=== PATIENT | female | born 1950 | race Two or more races ===

== ENCOUNTER 2021-04-15 10:17 | Outpatient (REF) | payer MEDICARE, MEDICAID, SELFPAY ==
[2021-04-15 11:52] LABS: Creatinine Urine 67.51 mg/dL; Microalbum/Creatinine Ratio Ur 663.6 ug/mg cr
[2021-04-15 11:55] LABS: Alanine Aminotransferase 11 U/L (0-31); Albumin Level 4.4 g/dL (3.5-5.0); Alkaline Phosphatase 87 U/L (39-117); Anion Gap 14 (12-20); Aspartate Amino Transferase 14 U/L (5-31); Bilirubin Total 0.4 mg/dL (0.0-1.0); Blood Urea Nitrogen 23 mg/dL (9-16); Calcium 10.1 mg/dL (8.4-10.2); Carbon Dioxide 27 mmol/L (22-29); Chloride 102 mmol/L (96-108); Cholesterol 227 mg/dL; Estimated Glomerular Filt Rate 56; Glucose Fasting 181 mg/dL (60-99); HDL Cholesterol 59 mg/dL; LDL Cholesterol Calculated 150 mg/dl; Potassium 4.9 mmol/L (3.3-5.1); Sodium 138 mmol/L (135-145); Total Protein 8.2 g/dL (6.5-8.0); Triglycerides 92 mg/dL
[2021-04-19 15:01] LABS: Vitamin D 25-OH, D2 <4 ng/mL; Vitamin D 25-OH, D3 22 ng/mL; Vitamin D 25-OH, Total 22 ng/mL (30-100)
== END 2021-04-15 10:18 | disposition home or self-care (01) ==
LOC: HO.LAB 10:17
PROVIDERS: PCP Internal Medicine; Visit Provider Internal Medicine
DX: E78.5 Hyperlipidemia, unspecified (principal); E55.9 Vitamin D deficiency, unspecified; Z79.4 Long term (current) use of insulin
CPT/HCPCS: 36415; 80053; 80061; 82043; 82306

== ENCOUNTER 2021-11-22 12:00 | Emergency (ER) | payer MEDICARE, MEDICAID, SELFPAY ==
[2021-11-22 16:07] VITALS: BP 184/106; PULSE 108; RESP 16; TEMP 36.5; O2SAT 98; BMI 24.7
[2021-11-22 16:14] LABS: Glucose, Whole Blood 115 mg/dL (60-115)
--- NOTE | 2021-11-22 16:28 | ED.EYEPROB ---
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 Patient tells me she had cataract surgery 1 month ago. Couple a days after having surgery she noticed the itching and swelling and redness. She saw a gliding pilot instructor on November 07 and was prescribed prednisone for 5 days and Benadryl. She is already using Toradol eyedrops and briminodine which she started immediately postop. No drainage from the eye, no eye pain, no vision changes, no pain with eye movement, no fevers or chills. Related Data Previous Rx's Medication Instructions Recorded blood sugar diagnostic (FreeStyle #60 ea 03/02/20 Test) insulin syringe-needle U-100 0.5 #30 ea 03/02/20 mL 31 gauge x 5/16 lancets 28 gauge (FreeStyle #60 ea 11/05/20 Lancets) dulaglutide 0.75 mg/0.5 mL 0.75 mg (0.5 mL) subcut QWEEK 90 01/04/21 subcutaneous pen injector days #6.5 mL (Trulicity) gabapentin 100 mg capsule 100 mg PO BEDTIME 90 days #90 caps 07/13/21 aspirin 81 mg tablet,delayed 81 mg PO DAILY 90 days #90 tabs 07/21/21 release (Adult Low Dose Aspirin) atorvastatin 20 mg tablet 20 mg PO BEDTIME 90 days #90 tabs 07/21/21 metformin 500 mg tablet 500 mg PO BID 90 days #180 tabs 07/21/21 trazodone 50 mg tablet 50 mg PO BEDTIME PRN sleep 90 days 07/21/21 #90 tabs lisinopril 10 mg tablet 10 mg PO DAILY #90 tabs 09/21/21 sennosides 8.6 mg capsule (senna) 8.6 mg PO BEDTIME PRN constipation 09/21/21 90 days #90 caps clindamycin HCl 150 mg capsule 150 mg PO TID #21 caps 11/22/21 diphenhydramine HCl 25 mg capsule 25 mg PO TID PRN itching #30 caps 11/22/21 (Benadryl) insulin glargine 100 unit/mL 15 unit (0.15 mL) subcut QPM 90 11/22/21 subcutaneous solution days #13.5 mL prednisone 20 mg tablet 40 mg PO DAILY #10 tabs 11/22/21 Allergies Allergy/AdvReac Type Severity Reaction Status Date / Time seafood Allergy Severe Swelling Verified 09/21/21 09:56 Review of Systems Review of Systems: Yes all other systems are reviewed and are negative Constitutional: Constitutional: Reports no additional constitutional complaints, Denies body ache(s), Denies chills, Denies fever(s), Denies headache(s) and Denies weakness Eyes: Eyes: Reports no additional eye complaints, Denies blurry vision, Denies change in vision, Denies eye discharge, Reports irritation, Reports itchy eyes, Denies other visual disturbances and Denies photophobia ENT: Reports system reviewed and no additional complaints, except as documented, Denies dizziness, Denies headache(s), Denies nasal congestion, Denies nasal discharge and Denies neck pain Cardiovascular: Cardiovascular: Reports no additional cardiovascular complaints, Denies chest pain, Denies leg edema and Denies dyspnea Respiratory: Respiratory: Reports no additional respiratory complaints, Denies cough and Denies dyspnea Gastrointestinal: Gastrointestinal: Reports no additional gastrointestinal complaints, Denies abdominal pain, Denies diarrhea, Denies nausea and Denies vomiting Genitourinary: Genitourinary: Reports no additional female genitourinary complaints and Denies urinary incontinence Musculoskeletal: Musculoskeletal: Reports no additional musculoskeletal complaints, Denies back pain, Denies arthralgias, Denies joint swelling, Denies neck pain, Denies numbness and Denies tingling Integumentary/Breasts: Skin/Breast: Reports system reviewed and no additional complaints, except as docu and Denies rash Neurologic: Reports system reviewed and no additional complaints, except as documented, Denies Abnormal speech present, Denies dizziness, Denies headache(s), Denies numbness, Denies tingling and Denies weakness Allergic/Immunologic: Allergic/Immunologic: Reports itchy eyes PMFSH Past Medical History Attestation statement: The following information was validated with the patient. Source: old records reviewed and nursing notes reviewed Medical History Constipation by delayed colonic transit Diabetes mellitus type 2, insulin dependent Diabetic neuropathy Essential hypertension Insomnia Microalbuminuria Pure hypercholesterolemia Surgical History History of tubal ligation S/P DAVID-BSO (total abdominal hysterectomy and bilateral salpingo-oophorectomy) Family History Family History Father Medical history unknown Mother Diabetes Hypertension Brother Cancer Son No problems noted. Son No problems noted. Social History Social History Housing: Apartment Alcohol intake: never Patient Tobacco Use Status: Never used Tobacco e-Cigarette/Vaping Use: Never Used Second Hand Smoke Exposure: No Advance Directives: No Advance Directives Information Provided: Yes service: No Current occupational status: disabled Cognitive needs: No Hearing needs: No Vision needs: Yes (glasses) Physical Exam Vital Signs: Vital Signs: Last Vital Signs Temp 97.7 F 11/22/21 16:07 Pulse 108 H 11/22/21 16:07 Resp 16 11/22/21 16:07 BP 184/106 H 11/22/21 16:07 Pulse Ox 98 11/22/21 16:07 O2 Del Method 11/22/21 16:07 BMI result Body Mass Index 24.7 Const: General: cooperative, healthy appearing, comfortable and no acute distress Orientation/consciousness: patient oriented x3 Limitations: no limitations HEENT: Other: bilateral eye pressure 20 Head: Yes normal to inspection Ears: hearing grossly normal bilaterally General nose exam: Normal external nose present Face and sinus: Yes normal facial exam Mouth: Normal oral and palatal mucosa present Throat: Yes posterior oropharynx normal Eyes: Other: There is redness of the upper and lower eyelid with swelling General: appearance normal, both eyes and all related structures Visual Wilhelm: normal visual wilhelm by confrontation Alignment and Position: alignment normal Conjunctivae: conjunctivae normal Sclerae: scleral abnormal (Bilateral mild scleral swelling) Corneas: corneas normal and fluorescein used (No abrasion or foreign body) Pupils: Equal, round and reactive pupils present EOM: EOMs intact bilaterally Direct Ophthalmoscopy: No photophobia Neck: Neck: Yes normal visual inspection, Yes full ROM and Yes no lymphadenopathy Chest: Chest palpation & inspection: normal inspection of the chest Resp: Effort & Inspection: normal respiratory effort Auscultation: clear to auscultation bilaterally Cardio: Rate: regular rate Rhythm: regular rhythm Peripheral pulses: Peripheral pulses 2+ throughout GI: Inspection: Yes normal to inspection Palpation (GI): Soft to palpation and nontender Auscultation: normal bowel sounds Back/Spine/Pelvis: Thoracic/Lumbar Spine: thoracic and lumbar spine normal to inspection Skin: General skin exam: no rashes or lesions noted Neuro: General: patient oriented x3, no focal motor deficits and normal sensation to monofilament Cranial nerves: Yes Equal, round and reactive pupils present Cognition (Neuro): normal cognition Speech: No Abnormal speech present Gait exam (Neuro): Normal gait present Motor exam (neuro): 5/5 motor strength present throughout Extrem: General: Yes normal to inspection Course Course Course Narrative: Pressures are normal. Fluorescein exam shows no abrasion or foreign body. There is conjunctival injection and scleral edema on exam. Erythema/swelling to upper and lower eyelids on exam. EOM is intact with no pain or difficulty. Likely allergic conjunctivitis but consider superimposed periorbital cellulitis. Low concern for orbital cellulitis with no reports of change in vision and EOM that is intact. Will start oral antibiotics and repeat course of prednisone. Recommend p.r.n. Benadryl Reviewed worrisome signs and symptoms of when to return to the emergency department. Comfortable discharge home. MDM - Eye Problem MDM Narrative Medical decision making narrative: 70-year-old female here with reports of bilateral eyelid redness, swelling, itching of the eyes for 3 weeks. Had cataract surgery 1 week prior to symptoms. Has followed up with Ophthalmology and was started on prednisone and Benadryl. Also using Toradol and brimidone gtt. Exam patient has bilateral upper and lower eyelid redness and swelling with conjunctival injection and scleral edema. She is itching her eyes quite incessantly in the room. Will check eye exam and pressures Medical Records Attestation: I reviewed the patient's medical records. Lab Data Attestation: I reviewed the patient's lab results. Labs: Lab Results 11/22/21 Range/Units 16:10 POC Glucose 115 (60-115) mg/dL Discharge Plan Discharge Clinical Impression: Cellulitis of periorbital region of both eyes, Acute allergic conjunctivitis of both eyes Patient Disposition: Home, Self-Care Instructions: Cellulitis (ED), Periorbital Cellulitis in Adults (ED), Conjunctivitis (ED) Additional Instructions: Continue eye drops Continue benadryl Avoid itching your eyes as this will make it worse Follow up with your eye doctor on december 20 Your blood pressure is elevated today. Please follow-up with primary care doctor this week to have a rechecked Prescriptions: New prednisone 20 mg tablet 40 mg PO DAILY Qty: 10 0RF clindamycin HCl 150 mg capsule 150 mg PO TID Qty: 21 0RF diphenhydramine HCl [Benadryl] 25 mg capsule 25 mg PO TID PRN (Reason: itching) Qty: 30 0RF No Action (DME) lancets [FreeStyle Lancets] 28 gauge misc See Rx Instructions .ROUTE .MEDSUPPLY Qty: 60 11RF Rx Instructions: Use 1 lancet twice a day Trulicity 0.75 mg/0.5 mL pen injector 0.75 mg subcut QWEEK 90 Days Qty: 6.5 3RF gabapentin 100 mg capsule 100 mg PO BEDTIME 90 Days Qty: 90 1RF trazodone 50 mg tablet 50 mg PO BEDTIME PRN (Reason: sleep) 90 Days Qty: 90 3RF metformin 500 mg tablet 500 mg PO BID 90 Days Qty: 180 3RF atorvastatin 20 mg tablet 20 mg PO BEDTIME 90 Days Qty: 90 3RF aspirin [Adult Low Dose Aspirin] 81 mg tablet,delayed release (DR/EC) 81 mg PO DAILY 90 Days Qty: 90 3RF insulin glargine 100 unit/mL solution 15 unit subcut QPM 90 Days Qty: 13.5 1RF (DME) insulin syringe-needle U-100 0.5 mL 31 gauge x 5/16 syringe See Rx Instructions .ROUTE .MEDSUPPLY Qty: 30 11RF Rx Instructions: As directed (DME) FreeStyle Test Strip See Rx Instructions .ROUTE .MEDSUPPLY Qty: 60 11RF Rx Instructions: 1 test strip twice a day senna 8.6 mg capsule 8.6 mg PO BEDTIME PRN (Reason: constipation) 90 Days Qty: 90 1RF lisinopril 10 mg tablet 10 mg PO DAILY Qty: 90 0RF Referrals: Angelica Beaver MD [Primary Care Provider] - (as needed) Interventions: ED Discharge Assessment Last Done: 11/22/21 17:36 Discharge Date/Time: 11/22/21 17:37
[2021-11-22] MEDS: Fluorescein Sodium STRIP 1 STRIP EYE-BOTH (16:51)
[2021-11-22] MEDS: Tetracaine HCl/PF 0.5% Oph Sol 4 ML DROPS 1 DROP EYE-BOTH (16:51)
== END 2021-11-22 17:37 | disposition home or self-care (01) ==
PROVIDERS: Emergency Provider Emergency Medicine; PCP Internal Medicine
DX: L03.213 Periorbital cellulitis (principal); H10.13 Acute atopic conjunctivitis, bilateral; Z79.899 Other long term (current) drug therapy
CPT/HCPCS: 82947; 99282; 99283

== ENCOUNTER 2022-02-09 17:59 | Emergency (ER) | payer MEDICARE, MEDICAID, SELFPAY ==
[2022-02-09 20:09] VITALS: BP 187/76; PULSE 104; RESP 18; TEMP 36.3; O2SAT 100; BMI 24.0
--- NOTE | 2022-02-09 20:16 | ED_ITS ---
HPI - General Adult General Chief complaint: General Medical Stated complaint: left sided pain and back..shingles Time Seen by Provider: 02/09/22 20:16 Source: patient Mode of arrival: ambulatory Limitations: language barrier (Citizen Of [place]-speaking) History of Present Illness HPI narrative: 71-year-old female with a past medical history of hypertension, hyperlipidemia, diabetes presenting to the ED with complaints of a rash to left side of her abdomen that is spreading to the left side of the back that started approximately 6 days ago. She reports it is very painful and very itchy. She reports she believes this is shingles. She denies any other symptoms complaints or concerns at this time. complaint: Shingles rash Onset (ago): day(s) (6 days) Location: back and abdomen Severity: moderate Quality: burning (Pruritic sensation) and constant Pain Consistency: constant Relieving factors: none Exacerbating factors: none Associated symptoms: rash Treatments prior to arrival: none Related Data Home Medications Medication Instructions Recorded Confirmed ketorolac 0.5 % eye drops drp ophthalmic (eye) ONCE 01/03/22 01/03/22 timolol maleate 0.5 % eye drops drp ophthalmic (eye) ONCE 01/03/22 01/03/22 triamcinolone acetonide 0.025 % topical 01/03/22 01/03/22 topical ointment Previous Rx's Medication Instructions Recorded blood sugar diagnostic (FreeStyle #60 ea 03/02/20 Test strips) insulin syringe-needle U-100 0.5 #30 ea 03/02/20 mL 31 gauge x 5/16 lancets 28 gauge (FreeStyle #60 ea 11/05/20 Lancets) aspirin 81 mg tablet,delayed 81 mg PO DAILY 90 days #90 tabs 07/21/21 release (Adult Low Dose Aspirin) atorvastatin 20 mg tablet 20 mg PO BEDTIME 90 days #90 tabs 07/21/21 metformin 500 mg tablet 500 mg PO BID 90 days #180 tabs 07/21/21 diphenhydramine HCl 25 mg capsule 25 mg PO TID PRN itching #30 caps 11/22/21 (Benadryl) insulin glargine 100 unit/mL 15 unit (0.15 mL) subcut QPM 90 11/22/21 subcutaneous solution days #13.5 mL dulaglutide 0.75 mg/0.5 mL 0.75 mg (0.5 mL) subcut QWEEK 90 12/31/21 subcutaneous pen injector days #6.5 mL (Trulicity) tramadol 50 mg tablet 50 mg PO DAILY 30 days #30 tabs 01/03/22 lisinopril 20 mg tablet 20 mg PO DAILY 90 days #90 tabs 01/05/22 sennosides 8.6 mg capsule (senna) 8.6 mg PO BEDTIME PRN constipation 01/12/22 90 days #90 caps trazodone 50 mg tablet 50 mg PO BEDTIME PRN sleep 90 days 01/12/22 #90 tabs gabapentin 100 mg capsule 100 mg PO BEDTIME 90 days #90 caps 01/22/22 oxycodone 5 mg tablet 5 mg PO Q6H PRN pain #14 tabs 02/09/22 prednisone 20 mg tablet 40 mg PO DAILY rash 5 days #10 tabs 02/09/22 valacyclovir 1 gram tablet 1,000 mg PO TID Shingles rash 14 02/09/22 (Valtrex) days #42 tabs Allergies Allergy/AdvReac Type Severity Reaction Status Date / Time seafood Allergy Severe Swelling Verified 01/03/22 13:42 Review of Systems Review of Systems: Constitutional : No Fever, No Chills , no body aches, no recent illness Head/Face: No facial swelling, No facial redness ENT/Mouth : No oral/throat swelling, No Hoarseness, No Swallowing Difficulty Eyes: No Eye Pain, No Swelling, No Redness Cardiovascular : No Chest Pain, No SOB, No palpitations Respiratory : No Cough, No Sputum, No Wheezing, No Smoke Exposure, No Dyspnea Gastrointestinal : No Nausea, No Vomiting, No Diarrhea, No abdominal Pain Genitourinary : No Dysuria, No Urinary Frequency, No Hematuria Musculoskeletal : No joint pain, No Myalgias, No Joint Swelling Skin : No Skin Lesions, positive rash Neuro : No Weakness, No Numbness, No Headache, No dizziness, No tingling Psych : No Anxiety/Panic, No Depression Heme/Lymph: No Bruising, No Lymphadenopathy Endocrine : No Polyuria, No Polydipsia Denies changes in lotions or detergents. Denies new medications or any changes in medications. Denies drainage from rash. Denies any recent sick contacts or recent travel. Yes all other systems are reviewed and are negative PMFSH Past Medical History Attestation statement: The following information was validated with the patient. Source: old records reviewed and nursing notes reviewed Medical History Constipation by delayed colonic transit Diabetes mellitus type 2, insulin dependent Diabetic neuropathy Essential hypertension Insomnia Microalbuminuria Pure hypercholesterolemia Surgical History History of tubal ligation S/P DAVID-BSO (total abdominal hysterectomy and bilateral salpingo-oophorectomy) Family History Family History Father Medical history unknown Mother Diabetes Hypertension Brother Cancer Son No problems noted. Son No problems noted. Social History Social History Housing: Apartment Alcohol intake: never Patient Tobacco Use Status: Never used Tobacco e-Cigarette/Vaping Use: Never Used Second Hand Smoke Exposure: No service: No Current occupational status: disabled Cognitive needs: No Hearing needs: No Vision needs: Yes (glasses) Physical Exam ED Vital Signs: Vital Signs - 24 hr 02/09/22 20:09 Temperature 97.3 F Pulse Rate 104 H Respiratory Rate 18 Blood Pressure 187/76 H Pulse Oximetry 100 Oxygen Delivery Method Room Air BMI result Body Mass Index 24.0 vital signs have been reviewed as normal and appeared to be correct. Blood pressure 187/76. Heart rate normal. Respiration rate normal. Temperature no rmal. Oxygen saturation normal. Appearance: Alert. Oriented X3. No acute distress. Head: Normal external exam. Normocephalic. Atraumatic. Eyes: PERRLA. EOMI. Conjunctiva and sclera normal. Eyelids normal. ENT: Pharynx normal. Uvula midline. Moist mucous membranes. Normal voice. Neck: Normal inspection. Neck supple. FROM. No adenopathy. No meningeal signs. CVS: Normal heart rate and rhythm. Heart sound normal. Pulses normal throughout. No murmurs/rales/gallops. Respiratory: No respiratory distress. Painless inspiration. Abdomen: Soft and nontender only over shingles rash. Bowel sounds normal in all 4 quadrants. No distention noted. No organomegaly noted. No visible injury noted. Back: No CVA tenderness. Full range of motion noted. Nontender. No signs of trauma. Patient neuro intact bilaterally and distally on all 4 extremities. Patient's reflexes intact bilaterally and distally on all 4 extremities. No rashes/lesion/induration/fluctuance or signs of infection noted. Skin: Skin warm and dry. Normal skin color. Normal skin turgor. Painful dermatomal clustered vesicles on an erythematous base with some crusting ulcers consistent with shingles rash to the left abdomen/flank/mid back following the dermatome. No signs of infection noted. No purulent drainage noted. No streaking noted. No additional rashes/lesions/lacerations noted. Extremities: Extremities exhibit normal range of motion and nontender. Neuro: Oriented X 3. No motor deficit. No sensory deficit. Normal steady gait. No focal neuro deficits noted. CN's II-XII intact bilaterally? Vascular: + radial pulses/+ 2 distal pedal pulses/+2 dorsalis pedis b/l. Normal cap refill. No cyanosis noted to upper extremity nails and lower extremity toes nails. Course Course Course Narrative: Patient with shingles rash. No signs of infection. No imaging or labs indicated. Will DC home with symptomatic treatment instructions return if any new or worsening symptoms follow up with primary care provider. Patient understands agrees with this plan. Medical Decision Making Medical Records Medical records reviewed: Yes I reviewed the patient's medical records. Discharge Plan Discharge Clinical Impression: Shingles rash Patient Disposition: Home, Self-Care Instructions: Shingles (ED) Prescriptions: New valacyclovir [Valtrex] 1 gram tablet 1,000 mg PO TID 14 Days Qty: 42 0RF prednisone 20 mg tablet 40 mg PO DAILY 5 Days Qty: 10 0RF oxycodone 5 mg tablet 5 mg PO Q6H PRN (Reason: pain) Qty: 14 0RF Rx Instructions: Partial Fill upon patient request. No Action (DME) lancets [FreeStyle Lancets] 28 gauge misc See Rx Instructions .ROUTE .MEDSUPPLY Qty: 60 11RF Rx Instructions: Use 1 lancet twice a day metformin 500 mg tablet 500 mg PO BID 90 Days Qty: 180 3RF atorvastatin 20 mg tablet 20 mg PO BEDTIME 90 Days Qty: 90 3RF aspirin [Adult Low Dose Aspirin] 81 mg tablet,delayed release (DR/EC) 81 mg PO DAILY 90 Days Qty: 90 3RF insulin glargine 100 unit/mL solution 15 unit subcut QPM 90 Days Qty: 13.5 1RF Trulicity 0.75 mg/0.5 mL pen injector 0.75 mg subcut QWEEK 90 Days Qty: 6.5 3RF lisinopril 20 mg tablet 20 mg PO DAILY 90 Days Qty: 90 1RF trazodone 50 mg tablet 50 mg PO BEDTIME PRN (Reason: sleep) 90 Days Qty: 90 3RF senna 8.6 mg capsule 8.6 mg PO BEDTIME PRN (Reason: constipation) 90 Days Qty: 90 1RF gabapentin 100 mg capsule 100 mg PO BEDTIME 90 Days Qty: 90 1RF diphenhydramine HCl [Benadryl] 25 mg capsule 25 mg PO TID PRN (Reason: itching) Qty: 30 0RF (DME) insulin syringe-needle U-100 0.5 mL 31 gauge x 5/16 syringe See Rx Instructions .ROUTE .MEDSUPPLY Qty: 30 11RF Rx Instructions: As directed (DME) FreeStyle Test Strip See Rx Instructions .ROUTE .MEDSUPPLY Qty: 60 11RF Rx Instructions: 1 test strip twice a day timolol maleate 0.5 % drops ophthalmic (eye) ONCE ketorolac 0.5 % drops ophthalmic (eye) ONCE triamcinolone acetonide 0.025 % ointment topical tramadol 50 mg tablet 50 mg PO DAILY 30 Days Qty: 30 0RF Referrals: Angelica Beaver MD [Primary Care Provider] - 3 days Print Language: Citizen Of [place]
== END 2022-02-09 21:08 | disposition home or self-care (01) ==
PROVIDERS: Emergency Provider Internal Medicine; PCP Internal Medicine
DX: B02.9 Zoster without complications (principal); E11.9 Type 2 diabetes mellitus without complications; I10 Essential (primary) hypertension; E78.5 Hyperlipidemia, unspecified; E78.00 Pure hypercholesterolemia, unspecified; Z79.84 Long term (current) use of oral hypoglycemic drugs; Z79.02 Long term (current) use of antithrombotics/antiplatelets; Z79.899 Other long term (current) drug therapy
CPT/HCPCS: 99282; 99283

== ENCOUNTER 2022-08-27 17:29 | Emergency (ER) | payer MEDICARE, MEDICAID, SELFPAY ==
--- NOTE | ~2022-08-27 | XR_ITS ---
EXAMINATION: 1. Pelvis and left hip 2. Left femur. CLINICAL INFORMATION: Injury. Pain. COMPARISON: None. TECHNIQUE: 1. Pelvis and left hip. Frontal view of pelvis. Cone-down AP and oblique view of left hip. 2. Left femur. 2 views of the left femur. FINDINGS: 1. Pelvis. Left hip. There is a transverse subcapital fracture of the left femoral neck. Fracture is impacted and slightly angulated. No additional fracture of pelvis. 2. Left femur. No additional fracture of the mid or distal shaft of the left femur. Vascular calcifications in the soft tissues of the thigh. XR/XR femur LT 2V IMPRESSION: 1. Pelvis. Transverse subcapital fracture of the left femoral neck. 2. Left femur. No additional fracture of the mid or distal shaft of left femur.
--- NOTE | ~2022-08-27 | XR_ITS ---
EXAMINATION: 1. Pelvis and left hip 2. Left femur. CLINICAL INFORMATION: Injury. Pain. COMPARISON: None. TECHNIQUE: 1. Pelvis and left hip. Frontal view of pelvis. Cone-down AP and oblique view of left hip. 2. Left femur. 2 views of the left femur. FINDINGS: 1. Pelvis. Left hip. There is a transverse subcapital fracture of the left femoral neck. Fracture is impacted and slightly angulated. No additional fracture of pelvis. 2. Left femur. No additional fracture of the mid or distal shaft of the left femur. Vascular calcifications in the soft tissues of the thigh. XR/XR hip LT w PEL1V IMPRESSION: 1. Pelvis. Transverse subcapital fracture of the left femoral neck. 2. Left femur. No additional fracture of the mid or distal shaft of left femur.
[2022-08-27 17:56] VITALS: BP 143/85; PULSE 114; RESP 18; TEMP 36.6; O2SAT 98; BMI 30.2
[2022-08-27 19:50] VITALS: BP 172/79; PULSE 91; RESP 14; TEMP 37.5; O2SAT 97
--- NOTE | 2022-08-27 20:08 | ECG_ITS ---
Test Reason : L EFT HIP FRACTURE Blood Pressure : / mmHG Vent. Rate : 095 BPM Atrial Rate : 095 BPM P-R Int : 114 ms QRS Dur : 076 ms QT Int : 340 ms P-R-T Axes : 052 060 033 degrees QTc Int : 427 ms Normal sinus rhythm Normal ECG No previous ECGs available Referred By: Allie Decker Electronically Signed By:DAI FELIPE MD
[2022-08-27 20:36] LABS: MANUAL DIFF FLAG NO
[2022-08-27 20:37] LABS: Glucose, Whole Blood 211 mg/dL (60-115)
--- NOTE | 2022-08-27 20:39 | PC.NURSE ---
Pt aox4 resting at the bedside. Breaths are even regular and unlabored. Abd soft and nontender. Skim wpd. VSS. 20G IV line placed on the R AC. Pt tolerated well. Pt aware of plan of care. Will continue to monitor.
[2022-08-27 20:44] LABS: Basophils Percent Auto 0.3 % (0-2); Eosinophils Absolute Auto 0.1 X10*3/uL (0.0-0.4); Eosinophils Percent Auto 0.7 % (0-4); Hemoglobin 12.2 g/dl (12.0-16.0); Imm Gran Abs Auto 0.03 X10*3/uL (0.00-0.03); Imm Gran Pct Auto 0.3 % (0.0-0.4); Lymphocytes Absolute Auto 1.7 X10*3/uL (1.2-4.9); Mean Corpuscular HGB Conc 31.3 g/dl (31.0-35.0); Mean Corpuscular Hemoglobin 26.1 pg (27.0-33.0); Mean Corpuscular Volume 83.5 fL (80.0-98.0); Mean Platelet Volume 11.1 fL (9.4-12.3); Monocytes Absolute Auto 0.7 X10*3/uL (0.1-1.2); Monocytes Percent Auto 8.2 % (2-11); Neutrophils Absolute Auto 6.1 x10*3/uL (2.0-8.3); Neutrophils Percent Auto 70.5 % (45-73); Platelet Count 207 X10*3/uL (160-400); Red Blood Count 4.67 X10*6/uL (4.20-5.50); White Blood Count 8.7 X10*3/uL (4.8-10.8)
[2022-08-27 20:45] LABS: Appearance Urine Cloudy; Color Urine Yellow; Glucose Urine UA 500 mg/dL (Negative); Leukocyte Esterase Urine Trace (Negative); Nitrite Urine Negative (Negative); PH 6.5 (5.0-9.0); UMIC TRIGGER UACC YES; Urine Blood Trace (Negative); Urine Ketones Negative (Negative); Urine Protein Trace mg/dL (Neg-Trace)
[2022-08-27 20:49] LABS: Bacteria Urine 1+ (None Seen); Hyaline Casts Urine 0-2 /LPF (0-2); RBC Urine >20 /HPF (0-2); WBC Urine 0-5 /HPF (0-5)
[2022-08-27 20:52] LABS: Alanine Aminotransferase 11 U/L (0-31); Albumin Level 4.1 g/dL (3.5-5.0); Alkaline Phosphatase 79 U/L (39-117); Anion Gap 11 (12-20); Aspartate Amino Transferase 13 U/L (5-31); Bilirubin Direct 0.1 mg/dL (0.0-0.5); Bilirubin Total 0.3 mg/dL (0.0-1.0); Blood Urea Nitrogen 26 mg/dL (9-16); Calcium 9.1 mg/dL (8.4-10.2); Carbon Dioxide 25 mmol/L (22-29); Chloride 107 mmol/L (96-108); Creatinine Clr Calc Pharmacy 37.1; Estimated Glomerular Filt Rate 42; Glucose Random 212 mg/dL (60-115); Lipase 21 U/L (8-78); Potassium 4.4 mmol/L (3.3-5.1); Sodium 139 mmol/L (135-145); Total Protein 7.2 g/dL (6.5-8.0)
--- NOTE | 2022-08-27 20:56 | ED.FALL ---
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 Patient fell off a 1 ft high standing stool at her kitchen landing on her left side causing severe pain in the left hip patient is unable to walk after the fall, no head injury, no LOC, no neck pain, no chest pain, no SOB, no abdominal pain. Only complaining of left hip pain. Related Data Previous Rx's Medication Instructions Recorded gabapentin 100 mg capsule 100 mg PO BEDTIME 90 days #90 caps 05/11/22 insulin syringe-needle U-100 0.5 #30 ea 05/11/22 mL 31 gauge x 5/16 lancets 28 gauge (FreeStyle #60 ea 05/11/22 Lancets) blood sugar diagnostic (FreeStyle #60 ea 05/17/22 Test strips) aspirin 81 mg tablet,delayed 81 mg PO DAILY 90 days #90 tabs 05/18/22 release (Adult Low Dose Aspirin) atorvastatin 20 mg tablet 20 mg PO BEDTIME 90 days #90 tabs 05/18/22 lisinopril 20 mg tablet 20 mg PO DAILY 90 days #90 tabs 05/18/22 metformin 500 mg tablet 500 mg PO BID 90 days #180 tabs 05/18/22 sennosides 8.6 mg capsule (senna) 8.6 mg PO BEDTIME PRN constipation 05/18/22 90 days #90 caps trazodone 50 mg tablet 50 mg PO BEDTIME PRN sleep 90 days 05/18/22 #90 tabs insulin glargine 100 unit/mL 20 unit (0.2 mL) subcut QPM 90 07/25/22 subcutaneous solution days #18 mL nystatin 100,000 unit/gram topical 1 appl topical DAILY PRN rash 2 08/25/22 cream weeks #15 grams Allergies Allergy/AdvReac Type Severity Reaction Status Date / Time seafood Allergy Severe Swelling Verified 05/18/22 14:25 Review of Systems Review of Systems: All other systems are reviewed and are negative Constitutional: Reports as per HPI and Reports no additional constitutional complaints Eyes: Reports as per HPI and Reports no additional eye complaints Reports system reviewed and no additional complaints, except as documented Cardiovascular: Reports as per HPI and Reports no additional cardiovascular complaints Respiratory: Reports as per HPI and Reports no additional respiratory complaints Gastrointestinal: Reports as per HPI and Reports no additional gastrointestinal complaints Genitourinary: Reports no additional female genitourinary complaints Musculoskeletal: Reports no additional musculoskeletal complaints Skin/Breast: Reports system reviewed and no additional complaints, except as docu Psychiatric: Reports no additional psychiatric complaints Endocrine: Reports no additional endocrine complaints Hematologic/Lymphatic: Reports no additional hematologic/lymphatic complaints Allergic/Immunologic: Reports no additional allergic/immunologic complaints Reports system reviewed and no additional complaints, except as documented and Reports Abnormal speech present [facility] Past Medical History Medical History Constipation by delayed colonic transit Diabetes mellitus type 2, insulin dependent Diabetic neuropathy Essential hypertension Insomnia Microalbuminuria Pure hypercholesterolemia Surgical History History of tubal ligation S/P DAVID-BSO (total abdominal hysterectomy and bilateral salpingo-oophorectomy) Family History Family History Father Medical history unknown Mother Diabetes Hypertension Brother Cancer Son No problems noted. Son No problems noted. Social History Social History Housing: Apartment Alcohol intake: never Patient Tobacco Use Status: Never used Tobacco e-Cigarette/Vaping Use: Never Used Second Hand Smoke Exposure: No Advance Directives: No Advance Directives Information Provided: No service: No Current occupational status: disabled Cognitive needs: No Hearing needs: No Vision needs: Yes (glasses) Physical Exam Vital Signs: Vital Signs: Last Vital Signs Temp 99.5 F 08/27/22 19:50 Pulse 91 08/27/22 19:50 Resp 14 08/27/22 19:50 BP 172/79 H 08/27/22 19:50 Pulse Ox 97 08/27/22 19:50 O2 Del Method Room Air 08/27/22 19:50 BMI result Body Mass Index 30.2 Vital signs have been reviewed as appeared to be correct. Blood pressure normal. Heart rate normal. Respiration rate normal. Temperature normal. Oxygen saturation normal. Appearance: Alert. Oriented X3. No acute distress. Head: Normal external exam. Normocephalic. Atraumatic. No Lou signs noted. No raccoon eyes noted Eyes: PERRLA. EOMI. Conjunctiva and sclera normal. Eyelids normal. ENT: TM's Normal. Pharynx normal. Uvula midline. Moist mucous membranes. No trismus noted. No drooling noted. No muffled voice noted. Neck: Normal inspection. Neck supple. FROM. No adenopathy. Thyroid Normal. No meningeal signs. No neck mass noted. CVS: Normal heart rate and rhythm. Heart sound normal. No murmurs noted. Pulses normal throughout. Respiratory: No respiratory distress. Painless inspiration. Breath sounds normal. No wheezes/rales/rhonchi noted. Chest nontender. No accessory muscle usage noted or decreased air movement noted. Abdomen: Soft and nontender. Bowel sounds normal in all 4 quadrants. No distention noted. No organomegaly noted. No visible injury noted. Back: No CVA tenderness. Full range of motion noted. Skin: Skin warm and dry. Normal skin color. Normal skin turgor. No rashes/lesions/lacerations noted. Extremities: Left hip tenderness, left lower extremity shortening and external rotation. Neuro: Oriented X 3. Cranial nerve exam: II-XII are grossly intact No motor deficit. No sensory deficit. Reflexes normal. Course Course Course Narrative: Left femoral neck fracture inter trochanteric, case discussed with the Orthopedic Service Dr. De Jesus who advised to transfer the patient to a different facility since Dr. Velez is away for vacation. Attempt to transfer the patient to [facility] who is closed for transfer, [facility] accepted the patient to the ED Dr. Gonzales has accepted the patient. Medical Decision Making Differential Diagnosis Differential Diagnoses: The differential diagnosis associated with the presentation includes (Left hip fracture, left hip contusion, other injuries, electrolyte disturbance.) Admission/Observation Consideration of admission/observation: Escalation of care including admission/observation considered Consult Healthcare Provider Management of the patient was discussed with: Ecological Risk Assessor (The case discussed with Dr. Montez/Chano because Dr. Velez is away for vacation advised to transfer the patient to another hospital.) Lab Data MDM Lab Attestation statement: I reviewed the patient's lab results. 08/27/22 20:29 08/27/22 20:29 Labs: Lab Results 08/27/22 08/27/22 08/27/22 Range/Units 20:29 20:29 20:29 WBC 8.7 (4.8-10.8) X10*3/uL RBC 4.67 (4.20-5.50) X10*6/uL Hgb 12.2 (12.0-16.0) g/dl Hct 39.0 (37.0-47.0) % MCV 83.5 (80.0-98.0) fL MCH 26.1 L (27.0-33.0) pg MCHC 31.3 (31.0-35.0) g/dl RDW 13.0 (11.0-16.0) % Plt Count 207 (160-400) X10*3/uL MPV 11.1 (9.4-12.3) fL Immature Gran % (Auto) 0.3 (0.0-0.4) % Neut % (Auto) 70.5 (45-73) % Lymph % (Auto) 20.0 (20-40) % [place] % (Auto) 8.2 (2-11) % Eos % (Auto) 0.7 (0-4) % Baso % (Auto) 0.3 (0-2) % Lymph # (Auto) 1.7 (1.2-4.9) X10*3/uL [place] # (Auto) 0.7 (0.1-1.2) X10*3/uL Eos # (Auto) 0.1 (0.0-0.4) X10*3/uL Baso # (Auto) 0.0 (0.0-0.2) X10*3/uL Abs Immat Gran (auto) 0.03 (0.00-0.03) X10*3/uL Absolute Neuts (auto) 6.1 (2.0-8.3) x10*3/uL Absolute Nucleated RBC 0.000 (0.0-0.012) X10*3/uL Nucleated RBC % (auto) 0.0 (0.0-0.2) /100WBC Sodium 139 (135-145) mmol/L Potassium 4.4 (3.3-5.1) mmol/L Chloride 107 (96-108) mmol/L Carbon Dioxide 25 (22-29) mmol/L Anion Gap 11 L (12-20) BUN 26 H (9-16) mg/dL Creatinine 1.25 (0.5-1.4) mg/dL Estim Creat Clear Calc 37.1 Estimated GFR 42 POC Glucose (60-115) mg/dL Random Glucose 212 H (60-115) mg/dL Calcium 9.1 D (8.4-10.2) mg/dL Total Bilirubin 0.3 (0.0-1.0) mg/dL Direct Bilirubin 0.1 (0.0-0.5) mg/dL AST 13 (5-31) U/L ALT 11 (0-31) U/L Alkaline Phosphatase 79 (39-117) U/L Troponin I High Sens < 2.7 (<3.5-17.0) ng/L B-Natriuretic Peptide (<100) pg/mL Total Protein 7.2 (6.5-8.0) g/dL Albumin 4.1 (3.5-5.0) g/dL Lipase 21 (8-78) U/L Urine Color Urine Appearance Urine pH (5.0-9.0) Ur Specific [place] (1.005-1.025) Urine Protein (Neg-Trace) mg/dL Urine Glucose (UA) (Negative) mg/dL Urine Ketones (Negative) mg/dL Urine Blood (Negative) Urine Nitrite (Negative) Ur Leukocyte Esterase (Negative) Urine RBC (0-2) /HPF Urine WBC (0-5) /HPF Ur Squamous Epith Cells (0-2) /HPF Urine Bacteria (None Seen) Hyaline Casts (0-2) /LPF COVID-19 (MATTHEW) (Negative) COVID-19 Clin Com 08/27/22 08/27/22 08/27/22 Range/Units 20:29 20:29 20:29 WBC (4.8-10.8) X10*3/uL RBC (4.20-5.50) X10*6/uL Hgb (12.0-16.0) g/dl Hct (37.0-47.0) % MCV (80.0-98.0) fL MCH (27.0-33.0) pg MCHC (31.0-35.0) g/dl RDW (11.0-16.0) % Plt Count (160-400) X10*3/uL MPV (9.4-12.3) fL Immature Gran % (Auto) (0.0-0.4) % Neut % (Auto) (45-73) % Lymph % (Auto) (20-40) % [place] % (Auto) (2-11) % Eos % (Auto) (0-4) % Baso % (Auto) (0-2) % Lymph # (Auto) (1.2-4.9) X10*3/uL [place] # (Auto) (0.1-1.2) X10*3/uL Eos # (Auto) (0.0-0.4) X10*3/uL Baso # (Auto) (0.0-0.2) X10*3/uL Abs Immat Gran (auto) (0.00-0.03) X10*3/uL Absolute Neuts (auto) (2.0-8.3) x10*3/uL Absolute Nucleated RBC (0.0-0.012) X10*3/uL Nucleated RBC % (auto) (0.0-0.2) /100WBC Sodium (135-145) mmol/L Potassium (3.3-5.1) mmol/L Chloride (96-108) mmol/L Carbon Dioxide (22-29) mmol/L Anion Gap (12-20) BUN (9-16) mg/dL Creatinine (0.5-1.4) mg/dL Estim Creat Clear Calc Estimated GFR POC Glucose (60-115) mg/dL Random Glucose (60-115) mg/dL Calcium (8.4-10.2) mg/dL Total Bilirubin (0.0-1.0) mg/dL Direct Bilirubin (0.0-0.5) mg/dL AST (5-31) U/L ALT (0-31) U/L Alkaline Phosphatase (39-117) U/L Troponin I High Sens (<3.5-17.0) ng/L B-Natriuretic Peptide 11 (<100) pg/mL Total Protein (6.5-8.0) g/dL Albumin (3.5-5.0) g/dL Lipase (8-78) U/L Urine Color Yellow Urine Appearance Cloudy Urine pH 6.5 (5.0-9.0) Ur Specific [place] 1.010 (1.005-1.025) Urine Protein Trace (Neg-Trace) mg/dL Urine Glucose (UA) 500 H (Negative) mg/dL Urine Ketones Negative (Negative) mg/dL Urine Blood Trace H (Negative) Urine Nitrite Negative (Negative) Ur Leukocyte Esterase Trace H (Negative) Urine RBC >20 H (0-2) /HPF Urine WBC 0-5 (0-5) /HPF Ur Squamous Epith Cells 3-5 (0-2) /HPF Urine Bacteria 1+ (None Seen) Hyaline Casts 0-2 (0-2) /LPF COVID-19 (MATTHEW) Negative (Negative) COVID-19 Clin Com See Note 08/27/22 Range/Units 20:33 WBC (4.8-10.8) X10*3/uL RBC (4.20-5.50) X10*6/uL Hgb (12.0-16.0) g/dl Hct (37.0-47.0) % MCV (80.0-98.0) fL MCH (27.0-33.0) pg MCHC (31.0-35.0) g/dl RDW (11.0-16.0) % Plt Count (160-400) X10*3/uL MPV (9.4-12.3) fL Immature Gran % (Auto) (0.0-0.4) % Neut % (Auto) (45-73) % Lymph % (Auto) (20-40) % [place] % (Auto) (2-11) % Eos % (Auto) (0-4) % Baso % (Auto) (0-2) % Lymph # (Auto) (1.2-4.9) X10*3/uL [place] # (Auto) (0.1-1.2) X10*3/uL Eos # (Auto) (0.0-0.4) X10*3/uL Baso # (Auto) (0.0-0.2) X10*3/uL Abs Immat Gran (auto) (0.00-0.03) X10*3/uL Absolute Neuts (auto) (2.0-8.3) x10*3/uL Absolute Nucleated RBC (0.0-0.012) X10*3/uL Nucleated RBC % (auto) (0.0-0.2) /100WBC Sodium (135-145) mmol/L Potassium (3.3-5.1) mmol/L Chloride (96-108) mmol/L Carbon Dioxide (22-29) mmol/L Anion Gap (12-20) BUN (9-16) mg/dL Creatinine (0.5-1.4) mg/dL Estim Creat Clear Calc Estimated GFR POC Glucose 211 H (60-115) mg/dL Random Glucose (60-115) mg/dL Calcium (8.4-10.2) mg/dL Total Bilirubin (0.0-1.0) mg/dL Direct Bilirubin (0.0-0.5) mg/dL AST (5-31) U/L ALT (0-31) U/L Alkaline Phosphatase (39-117) U/L Troponin I High Sens (<3.5-17.0) ng/L B-Natriuretic Peptide (<100) pg/mL Total Protein (6.5-8.0) g/dL Albumin (3.5-5.0) g/dL Lipase (8-78) U/L Urine Color Urine Appearance Urine pH (5.0-9.0) Ur Specific [place] (1.005-1.025) Urine Protein (Neg-Trace) mg/dL Urine Glucose (UA) (Negative) mg/dL Urine Ketones (Negative) mg/dL Urine Blood (Negative) Urine Nitrite (Negative) Ur Leukocyte Esterase (Negative) Urine RBC (0-2) /HPF Urine WBC (0-5) /HPF Ur Squamous Epith Cells (0-2) /HPF Urine Bacteria (None Seen) Hyaline Casts (0-2) /LPF COVID-19 (MATTHEW) (Negative) COVID-19 Clin Com Independent Interpretation I performed an independent interpretation of an: Plain X-Ray (Left hip x-ray: Left femoral neck intertrochanteric fracture) Discharge Plan Discharge Clinical Impression: Closed fracture of left hip Patient Disposition: Xfer Acute Care Hospital Transfer Details: [facility] emergency department Prescriptions: No Action gabapentin 100 mg capsule 100 mg PO BEDTIME 90 Days Qty: 90 1RF (DME) insulin syringe-needle U-100 0.5 mL 31 gauge x 5/16 syringe See Rx Instructions .ROUTE .MEDSUPPLY Qty: 30 11RF Rx Instructions: As directed (DME) lancets [FreeStyle Lancets] 28 gauge misc See Rx Instructions .ROUTE .MEDSUPPLY Qty: 60 11RF Rx Instructions: Use 1 lancet twice a day (DME) FreeStyle Test Strip See Rx Instructions .ROUTE .MEDSUPPLY Qty: 60 11RF Rx Instructions: 1 test strip twice a day insulin glargine 100 unit/mL solution 20 unit subcut QPM 90 Days Qty: 18 1RF nystatin 100,000 unit/gram cream 1 appl topical DAILY PRN (Reason: rash) 14 Days Qty: 15 0RF lisinopril 20 mg tablet 20 mg PO DAILY 90 Days Qty: 90 1RF metformin 500 mg tablet 500 mg PO BID 90 Days Qty: 180 3RF senna 8.6 mg capsule 8.6 mg PO BEDTIME PRN (Reason: constipation) 90 Days Qty: 90 1RF trazodone 50 mg tablet 50 mg PO BEDTIME PRN (Reason: sleep) 90 Days Qty: 90 3RF atorvastatin 20 mg tablet 20 mg PO BEDTIME 90 Days Qty: 90 3RF aspirin [Adult Low Dose Aspirin] 81 mg tablet,delayed release (DR/EC) 81 mg PO DAILY 90 Days Qty: 90 3RF
[2022-08-27 20:57] LABS: COVID-19 Test Negative (Negative); IDNOW Serial# 6674DD1D
[2022-08-27 20:58] LABS: B Type Natriuretic Peptide 11 pg/mL (<100)
[2022-08-27 21:06] LABS: Troponin-I High Sensitivity < 2.7 ng/L (<3.5-17.0)
--- NOTE | 2022-08-27 21:21 | MHC.EDTECH ---
pt will be transfered to [facility]. [facility] declined the transfer at 2021 due to capacity. [facility] accepted at [address]44 [address] Gonzales accepting physician . Willem was booked with [facility] at 2047 for BLS transfer. ETA of 2200
--- NOTE | 2022-08-27 22:18 | MHC.EDTECH ---
pt transportation will be delayed untill 2300 per scarlett.
[2022-08-27 23:01] VITALS: BP 182/78; PULSE 98; RESP 20; TEMP 37.1; O2SAT 98
--- NOTE | 2022-08-27 23:13 | PC.NURSE ---
Nurse report provided to nurse Jorge at . Pt being transferred via EMS and aware of plan of care.
== END 2022-08-27 23:14 | disposition short-term general hospital (02) ==
PROVIDERS: Emergency Provider Emergency Medicine; PCP Internal Medicine
DX: S72.012A Unspecified intracapsular fracture of left femur, initial encounter for closed fracture (principal); W17.89XA Other fall from one level to another, initial encounter; Z20.822 Contact with and (suspected) exposure to COVID-19; Y93.89 Activity, other specified; Y92.039 Unspecified place in apartment as the place of occurrence of the external cause; Y99.9 Unspecified external cause status; E11.9 Type 2 diabetes mellitus without complications; I10 Essential (primary) hypertension; E78.5 Hyperlipidemia, unspecified
CPT/HCPCS: 36415; 73502; 73552; 80048; 80076; 81001; 82947; 83690; 83880; 84484; 85025; 87635; 93005; 99285

== ENCOUNTER 2023-05-10 16:30 | Outpatient (AMB) | payer MEDICARE, MEDICAID, SELFPAY ==
[2023-05-10 16:42] VITALS: BP 152/80; BMI 26.4
--- NOTE | 2023-05-10 16:42 | A.OFFPC_ITS ---
Vital Signs 05/10/23 16:42 05/10/23 17:13 Height 5 ft Weight 135 lb BMI 26.4 BP 152/80 H 150/80 H Blood Pressure Location Lt brachial Lt brachial Position Sitting Sitting Intake Visit Reasons: dm Intake Note: Patient here for a follow up DM Tdp Displays Analyst Required: No Accompanied by: Self / Same As Patient Allergies seafood Allergy (Severe, Verified 05/10/23 16:55) Swelling Medication List - Last Reconciled 05/10/23 by Angelica Sampson MD aspirin (Adult Low Dose Aspirin) 81 mg PO DAILY 90 days atorvastatin 20 mg PO BEDTIME 90 days blood sugar diagnostic (FreeStyle Test strips) 1 test strip twice a day gabapentin 100 mg PO BEDTIME 90 days insulin glargine 20 units (0.2 mL) subcut QPM 90 days insulin syringe-needle U-100 As directed lancets (FreeStyle Lancets) Use 1 lancet twice a day lisinopril 20 mg PO DAILY 90 days metformin 500 mg PO BID 90 days nystatin 1 appl topical DAILY PRN 2 weeks sennosides (senna) 8.6 mg PO BEDTIME PRN 90 days trazodone 50 mg PO BEDTIME PRN 90 days Tobacco use date assessed: 05/18/22 Fall risk assessment: 1 Fall in past year Last assessed Fall Risk: 05/10/23 Dental Screening Dental Screen Date: 05/10/23 Did you have a dental visit in the last 12 months?: No Did you have a dental problem in the last 6 months where you did not have access to dental care?: No Was dental information given to patient?: Patient has dentist HPI HPI Comments History of Present Illness Details This is a 72-year-old female with diabetes mellitus type 2 on long-term current use of insulin, hypertension, pure hypercholesterolemia, insomnia and constipation that comes today complaining of left hip pain after a hip fracture requiring operative repair in August 2022. She walks with a cane for gait stability. Not able to lift over 30 lb or walk over 2 blocks. She is not able to work. A1c elevated and I will increase insulin. Blood pressure elevated and I will increase lisinopril. Lipid panel will be order and her LDL goal should be less than 70. Insomnia stable with trazodone. Constipation well control with senna as needed. [facility] Medical History Hip fracture requiring operative repair Diabetic neuropathy Insomnia Constipation by delayed colonic transit Microalbuminuria Pure hypercholesterolemia Essential hypertension Diabetes mellitus type 2, insulin dependent Surgical History S/P DAVID-BSO (total abdominal hysterectomy and bilateral salpingo-oophorectomy) History of tubal ligation Family History Father Medical history unknown Mother Diabetes Hypertension Brother Cancer Son No problems noted. Son No problems noted. Social History Housing: Apartment Alcohol intake: never Patient Tobacco Use Status: Never used Tobacco e-Cigarette/Vaping Use: Never Used Second Hand Smoke Exposure: No service: No Current occupational status: disabled Cognitive needs: No Hearing needs: No Vision needs: Yes (glasses) Questionnaire Thrive Questionnaire Date Thrive assessed: 05/18/22 RAMEZ-7 AMB Questionnaire RAMEZ-7 Date RAMEZ - 7 assessed: 05/18/22 Source: Developed by Drs. Aurelio Sanchez, Kendra Mata, Riley Colón and colleagues, with an educational sandy from [employer]. Review of Systems Const All systems reviewed & are unremarkable except as noted in HPI and below Eyes Reports no additional complaints, Denies change in vision and Denies other visual disturbances Card Denies chest pain at rest, Denies chest pain with activity, Denies edema, Denies irregular heart rhythm, Denies claudication, Denies dyspnea, Denies dyspnea on exertion, Denies orthopnea, Denies paroxysmal nocturnal dyspnea and Denies slow heart rate Resp Denies cough, Denies dyspnea and Denies dyspnea on exertion GI Denies abdominal pain, Denies change in bowel habits, Denies excessive flatus, Denies nausea and Denies vomiting Denies urinary incontinence, Denies urinary hesitancy and Denies urinary urgency Musc Denies abnormal gait, Denies atrophy, Denies deformity, Reports arthralgias and Denies limited range of motion Skin/Breast Denies bleeding lesions, Denies changing lesions and Denies rash Neuro Denies abnormal gait, Denies behavioral changes and Denies lack of coordination Psych Denies behavioral changes Physical exam (Primary Care) Vital Signs: Last Vital Signs BP 152/80 H 05/10/23 16:42 BMI result Body Mass Index 26.4 Tobacco/Smoking Status: Tobacco use Status Tobacco use date assessed 05/18/22 05/10/23 16:43 Patient Tobacco Use Status Never used Tobacco 05/10/23 16:43 e-Cigarette/Vaping Use Never Used 05/10/23 16:43 Thrive Assessment: Date of Thrive Assessment Date Thrive assessed 05/18/22 05/10/23 16:43 Const Limitations: ambulation with cane Eyes General: appearance normal, both eyes and all related structures Eyelids: Yes eyelids normal Conjunctivae: conjunctivae normal Neck Neck: Yes normal visual inspection and Yes supple Resp Effort & Inspection: normal respiratory effort Auscultation: clear to auscultation bilaterally Cardio Jugular venous distension: no JVD Rate: regular rate Rhythm: regular rhythm Heart sounds: S1 normal heart sound present and S2 normal heart sound present Extrem General: Yes full ROM Office Procedures Flu Questionnaire Does the patient have a severe egg allergy?: No Results AMB Hemoglobin A1c AMB Hemoglobin A1c 9.2 % Last Edit by AMI Yang on 05/10/23 16:5 0 Immunizations flu vacc [id number] 6mos up(PF) 60 mcg(15 mcgx4)/0.5 mL IM syringe Performing Provider: Angelica Sampson MD [facility] [place] Documented (not given) by: AMI Yang on 05/10/23 16:47 Reason Not Given: Received Previously Results Reviewed Results Reviewed: Laboratory Last Values Hgb A1c (Clinic) 9.2 % (4.0-6.0) H 05/10/23 16:46 Assessment and Plan Assessment & Plan (1) Diabetes mellitus type 2, insulin dependent: Code(s): E11.9 - Type 2 diabetes mellitus without complications; 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 A1c goal is equal or less than 7%. (2) Essential hypertension: Code(s): I10 - Essential (primary) hypertension Plan: Increase lisinopril to 40 mg. Blood pressure goal is equal or less than 130/80. (3) Pure hypercholesterolemia: Code(s): E78.00 - Pure hypercholesterolemia, unspecified Plan: Continue statins. Repeat lipid panel. LDL goal is less than 70. (4) Constipation by delayed colonic transit: Code(s): K59.01 - Slow transit constipation Plan: Continue senna as needed. (5) Insomnia: Code(s): G47.00 - Insomnia, unspecified Qualifiers: Insomnia type: psychophysiologic Qualified Code(s): F51.04 - Psychophysiologic insomnia Plan: Continue trazodone (6) Hip fracture requiring operative repair: Code(s): S72.009A - Fracture of unspecified part of neck of unspecified femur, initial encounter for closed fracture Plan: Continue the use of a cane for gait stability. 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 of insulin To insulin glargine 23 units (0.23 mL) subcut QPM 90 days 20.7 mL 1RF E11.9 - Type 2 diabetes mellitus without complications, Z79.4 - senior living (current) use of insulin Discontinued lisinopril Discontinued Reason: No Longer Medically Relevant 20 mg PO DAILY 90 days 90 tabs 0RF Coding Level of Care Code Est Pt Level 4 (19570) Diagnoses Diabetes mellitus type 2, insulin dependent E11.9; Z79.4 Essential hypertension I10 Pure hypercholesterolemia E78.00 Constipation by delayed colonic transit K59.01 Psychophysiological insomnia F51.04 Insomnia type: psychophysiologic Hip fracture requiring operative repair S72.009A Time Spent (min) 23
[2023-05-10 17:13] VITALS: BP 150/80
== END 2023-05-10 17:07 | disposition home or self-care (01) ==
PROVIDERS: PCP Internal Medicine; Visit Provider Internal Medicine
DX: E11.9 Type 2 diabetes mellitus without complications (principal); Z79.4 Long term (current) use of insulin; S72.009A Fracture of unspecified part of neck of unspecified femur, initial encounter for closed fracture; I10 Essential (primary) hypertension; E78.00 Pure hypercholesterolemia, unspecified; K59.01 Slow transit constipation; F51.04 Psychophysiologic insomnia
CPT/HCPCS: 83036; 99214

== ENCOUNTER 2023-09-12 13:00 | Outpatient (AMB) | payer MEDICARE, MEDICAID, SELFPAY ==
[2023-09-12 13:25] VITALS: BP 136/82; BMI 26.4
--- NOTE | 2023-09-12 13:25 | MHC.PC.OV ---
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 Accompanied by: Self / Same As Patient Allergies seafood Allergy (Severe, Verified 09/12/23 13:39) Swelling Medication List - Last Reconciled 09/12/23 by Angelica Sampson MD aspirin (Adult Low Dose Aspirin) 81 mg PO DAILY 90 days atorvastatin 20 mg PO BEDTIME 90 days blood sugar diagnostic (FreeStyle Test strips) 1 test strip twice a day gabapentin 100 mg PO BEDTIME 90 days insulin glargine 23 units (0.23 mL) subcut QPM 90 days insulin syringe-needle U-100 As directed lancets (FreeStyle Lancets) Use 1 lancet twice a day lisinopril 40 mg PO DAILY 90 days metformin 500 mg PO BID 90 days nystatin 1 appl topical DAILY PRN 2 weeks sennosides (senna) 8.6 mg PO BEDTIME PRN 90 days trazodone 50 mg PO BEDTIME PRN 90 days Tobacco use date assessed: 09/12/23 Fall risk assessment: No Falls in past year Last assessed Fall Risk: 09/12/23 Dental Screening Dental Screen Date: 09/12/23 Did you have a dental visit in the last 12 months?: No Did you have a dental problem in the last 6 months where you did not have access to dental care?: No Was dental information given to patient?: Patient has dentist HPI HPI Comments History of Present Illness Details This is a 72-year-old female with diabetes mellitus type 2 on long-term current use of insulin that comes for her physical exam. A1c has improved but still elevated and I will increase metformin to 500 mg 2 tablets at a.m. and 1 tablet at p.m.. Glargine will not be covered anymore by insurance and I will change it to Tresiba and increase it from 23 units to 25 units. Last diabetic eye exam was December 2022 showing mild diabetic retinopathy. She also has diabetic neuropathy that has been stable with gabapentin and reports no side effects. Last mammogram was over a year ago. Has never had a bone density or colonoscopy and do have family history of colon cancer. No need for Pap smear and due to age. No chest pain or shortness of breath. Compliant with medications. [facility] Medical History (Updated 09/12/23 @ 13:56 by Angelica Sampson MD) Hip fracture requiring operative repair Diabetic neuropathy Insomnia Constipation by delayed colonic transit Microalbuminuria Pure hypercholesterolemia Essential hypertension Diabetes mellitus type 2, insulin dependent Surgical History S/P DAVID-BSO (total abdominal hysterectomy and bilateral salpingo-oophorectomy) History of tubal ligation Family History (Updated 09/12/23 @ 13:45 by Angelica Sampson MD) Father Medical history unknown Mother Diabetes Hypertension ESRD on hemodialysis Brother Cancer, Onset Age: 60 Son No problems noted. Son No problems noted. Social History Housing: Apartment Alcohol intake: never Patient Tobacco Use Status: Never used Tobacco e-Cigarette/Vaping Use: Never Used Second Hand Smoke Exposure: No service: No Current occupational status: disabled Cognitive needs: No Hearing needs: No Vision needs: Yes (glasses) Questionnaire PHQ-9 Over the last 2 weeks, how often have you been bothered by any of the following problems? 1. Little interest or pleasure in doing things: not at all 2. Feeling down, depressed, or hopeless: not at all 3. Trouble falling or staying asleep, or sleeping too much: not at all 4. Feeling tired or having little energy: not at all 5. Poor appetite or overeating: not at all 6. Feeling bad about yourself - or that you are a failure or have let yourself or your family down: not at all 7. Trouble concentrating on things, such as reading the newspaper or watching television: not at all 8. Moving or speaking so slowly that other people could have noticed. Or the opposite - being so fidgety or restless that you have been moving around a lot more than usual: not at all 9. Thoughts that you would be better off or of hurting yourself in some way: not at all Total score: 0 Depression Screening Interpretation: Negative Depression Screening Done: Yes 07231 - PHQ-9 Billing: Yes Source: Developed by Drs. Aurelio Sanchez, Riley Nichols and colleagues, with an educational sandy from [employer]. Thrive Questionnaire Date Thrive assessed: 09/12/23 I am a: Patient What is your living situation today?: I have a steady place to live Within the past 12 months, did the food you bought not last and you didn't have the money to get more?: Never true Within the past 12 months, did you worry whether your food would run out before you got money to buy more?: Never true Do you have trouble paying for medicines?: No Do you have trouble getting transportation to medical appointments?: No Do you have trouble paying your heating and electricity bill?: No Do you have trouble taking care of your child, family member or friend?: No Do you have trouble with day-to-day activities such as bathing, preparing meals, shopping, managing finances, etc.?: No Are you currently unemployed and looking for a job?: No Are you interested in more education?: No Please select the resources that you would like help with: None Currently or been in a relationship where the following occur: no concerns reported THRIVE Score: 0 AUDIT C Alcohol Use Questionnaire (AUDIT-C) 1. How often do you have a drink containing alcohol?: Never Total Score: 0 Score Reviewed/Action Taken: No RAMEZ-7 AMB Questionnaire RAMEZ-7 Date RAMEZ - 7 assessed: 09/12/23 Feeling nervous, anxious, or on edge: 0 = Not at all Not being able to stop or control worryin = Not at all Worrying too much about different things: 0 = Not at all Trouble relaxin = Not at all Being so restless that it is hard to sit still: 0 = Not at all Becoming easily annoyed or irritable: 0 = Not at all Feeling afraid as if something awful might happen: 0 = Not at all Total RAMEZ-7 score (0-4 normal; 5-9 mild; 10-14 moderate; 15-21 severe): 0 Source: Developed by Drs. Aurelio Sanchez, Riley Nichols and colleagues, with an educational sandy from [employer]. RAMEZ-7 Assessment Billing RAMEZ-7 Assessment Tool: RAMEZ-7 Assessment 46774 Review of Systems Const All systems reviewed & are unremarkable except as noted in HPI and below Eyes Reports no additional complaints, Denies change in vision and Denies other visual disturbances Card Denies chest pain at rest, Denies chest pain with activity, Denies edema, Denies irregular heart rhythm, Denies claudication, Denies dyspnea, Denies dyspnea on exertion, Denies orthopnea, Denies paroxysmal nocturnal dyspnea and Denies slow heart rate Resp Denies cough, Denies dyspnea and Denies dyspnea on exertion GI Denies abdominal pain, Denies change in bowel habits, Denies excessive flatus, Denies nausea and Denies vomiting Denies urinary incontinence, Denies urinary hesitancy and Denies urinary urgency Physical exam (Primary Care) Vital Signs: Last Vital Signs BP 136/82 09/12/23 13:25 BMI result Body Mass Index 26.4 Tobacco/Smoking Status: Tobacco use Status Tobacco use date assessed 09/12/23 09/12/23 13:33 Patient Tobacco Use Status Never used Tobacco 09/12/23 13:33 e-Cigarette/Vaping Use Never Used 09/12/23 13:33 PHQ-9: PHQ-9 Score PHQ-9: Total score 0 09/12/23 13:33 Depression Screening Interpretation: Negative Thrive Assessment: Date of Thrive Assessment Date Thrive assessed 09/12/23 09/12/23 13:33 Currently or been in a relationship where the following occur: no concerns reported Const Orientation/consciousness: patient oriented x3 HENDE Head: Yes normal to inspection, Yes normocephalic and Yes atraumatic Ears: external ears normal Eyes General: appearance normal, both eyes and all related structures Eyelids: Yes eyelids normal Conjunctivae: conjunctivae normal Neck Neck: Yes normal visual inspection and Yes supple Resp Effort & Inspection: normal respiratory effort Auscultation: clear to auscultation bilaterally Cardio Jugular venous distension: no JVD Rate: regular rate Rhythm: regular rhythm Heart sounds: S1 normal heart sound present and S2 normal heart sound present GI Inspection: Yes normal to inspection Palpation (GI): Soft to palpation and nontender Auscultation: normal bowel sounds Skin General skin exam: no rashes or lesions noted Neuro General: patient oriented x3 and no focal motor deficits Extrem General: Yes full ROM Psych Appearance: grossly normal Results AMB Hemoglobin A1c AMB Hemoglobin A1c 8.4 % Last Edit by AMI Yang on 09/12/23 13:35 Results Reviewed Results Reviewed: Laboratory Last Values Hgb A1c (Clinic) 8.4 % (4.0-6.0) H 09/12/23 13:02 Assessment and Plan Assessment & Plan (1) Physical exam: Code(s): Z00.00 - Encounter for general adult medical examination without abnormal findings Plan: Repeat in a year. (2) Diabetes mellitus type 2, insulin dependent: Code(s): E11.9 - Type 2 diabetes mellitus without complications; Z79.4 - senior care (current) use of insulin Plan: Change Glargine 23 units to Tresiba 25 units once a day. Increase metformin to a total of 3 tablets of 500 mg once a day. A1c goal is equal or less than 7%. (3) Diabetic neuropathy: Code(s): E11.40 - Type 2 diabetes mellitus with diabetic neuropathy, unspecified Qualifiers: Diabetes mellitus type: type 2 Diabetes mellitus complication detail: diabetic autonomic neuropathy Qualified Code(s): E11.43 - Type 2 diabetes mellitus with diabetic autonomic (poly)neuropathy Plan: Change metformin 500 mg to 2 tabs at a.m. and 1 tab p.m.. A1c goal is equal or less than 7%. Continue gabapentin for neuropathy. Orders: Orders Vitamin D 25-OH Total Today E55.9 - Vitamin D deficiency, unspecified AMB Hemoglobin A1c Today E11.9 - Type 2 diabetes mellitus without complications, Z79.4 - senior care (current) use of insulin MM screening mammo BI Today Z12.31 - Encounter for screening mammogram for malignant neoplasm of breast XR DEXA axial skeleton Today N95.9 - Unspecified menopausal and perimenopausal disorder Lipid Panel Today E78.5 - Hyperlipidemia, unspecified Microalbumin, Random (w Creat) Today E11.9 - Type 2 diabetes mellitus without complications Comprehensive [place]. 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 To metformin Take 2 tabs at am and 1 tab at pm 500 mg PO DIRECTED 90 days 270 tabs 3RF E11.9 - Type 2 diabetes mellitus without complications, 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
== END 2023-09-12 13:53 | disposition home or self-care (01) ==
PROVIDERS: PCP Internal Medicine; Visit Provider Internal Medicine
DX: Z00.00 Encounter for general adult medical examination without abnormal findings (principal); E11.43 Type 2 diabetes mellitus with diabetic autonomic (poly)neuropathy; Z79.4 Long term (current) use of insulin
CPT/HCPCS: 83036; 99397

== ENCOUNTER 2024-05-28 15:20 | Outpatient (AMB) | payer MEDICARE, MEDICAID, SELFPAY ==
--- NOTE | 2024-05-28 15:28 | A.OFFPC_ITS ---
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 Name: Angelica Sampson MD Information Interpreted: non-clinical & clinical Accompanied by: Child Allergies seafood Allergy (Severe, Verified 05/28/24 15:38) Swelling Tobacco use date assessed: 05/28/24 Fall risk assessment: No Falls in past year Last assessed Fall Risk: 05/28/24 Dental Screening Dental Screen Date: 05/28/24 Did you have a dental visit in the last 12 months?: No Did you have a dental problem in the last 6 months where you did not have access to dental care?: No Was dental information given to patient?: Patient has dentist HPI HPI Comments History of Present Illness Details The patient is a 73-year-old female presenting with ongoing management of type 2 diabetes mellitus, essential hypertension, and hyperlipidemia. The patient reports that her most recent HbA1c measurement was 8.9%, indicating poor glycemic control. She monitors her blood glucose at home, noting fluctuations with occurrences of both high and low readings. Currently, she administers Lantus insulin at 23 units, but experiences persistent challenges in maintaining her target glucose levels. In the past, she has managed hypertension with lisinopril 40 mg daily. Recently, however, her blood pressure has been higher than desired, with home readings reported as significantly elevated. The patient has been taking atorvastatin for her hyperlipidemia and is compliant with aspirin 81 mg daily. She also uses gabapentin as needed for discomfort. Additionally, she intermittently experiences insomnia, for which she uses trazodone at bedtime. The patient has reported no recent occurrence of upper respiratory infections and did not contract coronavirus despite exposure in the household. [facility] Medical History (Updated 05/28/24 @ 16:08 by Angelica Sampson MD) Hip fracture requiring operative repair Diabetic neuropathy Insomnia Constipation by delayed colonic transit Microalbuminuria Pure hypercholesterolemia Essential hypertension Diabetes mellitus type 2, insulin dependent Surgical History S/P DAVID-BSO (total abdominal hysterectomy and bilateral salpingo-oophorectomy) History of tubal ligation Family History Father Medical history unknown Mother Diabetes Hypertension ESRD on hemodialysis Brother Cancer, Onset Age: 60 Son No problems noted. Son No problems noted. Social History Housing: Apartment Alcohol intake: never Patient Tobacco Use Status: Never used Tobacco e-Cigarette/Vaping Use: Never Used Second Hand Smoke Exposure: No service: No Current occupational status: disabled Cognitive needs: No Hearing needs: No Vision needs: Yes (glasses) Questionnaire PHQ-9 Over the last 2 weeks, how often have you been bothered by any of the following problems? 1. Little interest or pleasure in doing things: not at all 2. Feeling down, depressed, or hopeless: not at all 3. Trouble falling or staying asleep, or sleeping too much: not at all 4. Feeling tired or having little energy: not at all 5. Poor appetite or overeating: not at all 6. Feeling bad about yourself - or that you are a failure or have let yourself or your family down: not at all 7. Trouble concentrating on things, such as reading the newspaper or watching television: not at all 8. Moving or speaking so slowly that other people could have noticed. Or the opposite - being so fidgety or restless that you have been moving around a lot more than usual: not at all 9. Thoughts that you would be better off or of hurting yourself in some way: not at all Total score: 0 Depression Screening Interpretation: Negative Depression Screening Done: Yes 30350 - PHQ-9 Billing: Yes Source: Developed by Drs. Aurelio Sanchez, Kendra Mata, Riley Colón and colleagues, with an educational sandy from [employer]. Thrive Questionnaire Date Thrive assessed: 05/28/24 I am a: Patient What is your living situation today?: I have a steady place to live Within the past 12 months, did the food you bought not last and you didn't have the money to get more?: Never true Within the past 12 months, did you worry whether your food would run out before you got money to buy more?: Never true Do you have trouble paying for medicines?: No Do you have trouble getting transportation to medical appointments?: No Do you have trouble paying your heating and electricity bill?: No Do you have trouble taking care of your child, family member or friend?: No Do you have trouble with day-to-day activities such as bathing, preparing meals, shopping, managing finances, etc.?: No Are you currently unemployed and looking for a job?: No Are you interested in more education?: No Please select the resources that you would like help with: None Currently or been in a relationship where the following occur: No concerns reported THRIVE Score: 0 AUDIT C Alcohol Use Questionnaire (AUDIT-C) 1. How often do you have a drink containing alcohol?: Never Total Score: 0 Score Reviewed/Action Taken: No RAMEZ-7 AMB Questionnaire RAMEZ-7 Date RAMEZ - 7 assessed: 05/28/24 Feeling nervous, anxious, or on edge: 0 = Not at all Not being able to stop or control worryin = Not at all Worrying too much about different things: 0 = Not at all Trouble relaxin = Not at all Being so restless that it is hard to sit still: 0 = Not at all Becoming easily annoyed or irritable: 0 = Not at all Feeling afraid as if something awful might happen: 0 = Not at all Total RAMEZ-7 score (0-4 normal; 5-9 mild; 10-14 moderate; 15-21 severe): 0 Source: Developed by Drs. Aurelio Sanchez, Kendra Mata, Riley Colón and colleagues, with an educational sandy from [employer]. RAMEZ-7 Assessment Billing RAMEZ-7 Assessment Tool: RAMEZ-7 Assessment 35396 Review of Systems Const All systems reviewed & are unremarkable except as noted in HPI and below Card Denies chest pain at rest, Denies chest pain with activity, Denies edema, Denies irregular heart rhythm, Denies claudication, Denies dyspnea, Denies dyspnea on exertion, Denies orthopnea, Denies paroxysmal nocturnal dyspnea and Denies slow heart rate Resp Denies cough, Denies dyspnea and Denies dyspnea on exertion Physical exam (Primary Care) Vital Signs: Last Vital Signs BP 156/80 H 05/28/24 15:30 BMI result Body Mass Index 27.1 Tobacco/Smoking Status: Tobacco use Status Tobacco use date assessed 05/28/24 05/28/24 15:39 Patient Tobacco Use Status Never used Tobacco 05/28/24 15:28 e-Cigarette/Vaping Use Never Used 05/28/24 15:28 PHQ-9: PHQ-9 Score PHQ-9: Total score 0 05/28/24 16:00 Depression Screening Interpretation: Negative Thrive Assessment: Date of Thrive Assessment Date Thrive assessed 05/28/24 05/28/24 15:35 Currently or been in a relationship where the following occur: No concerns reported Resp Effort & Inspection: normal respiratory effort Auscultation: clear to auscultation bilaterally Cardio Jugular venous distension: no JVD Rate: regular rate Rhythm: regular rhythm Heart sounds: S1 normal heart sound present and S2 normal heart sound present Extrem General: Yes full ROM Office Procedures Flu Questionnaire Does the patient have a severe egg allergy?: No Results AMB Hemoglobin A1c AMB Hemoglobin A1c 8.9 % Last Edit by AMI Yang on 05/28/24 15:4 0 Immunizations Fluarix Triv 1152-3616 (PF) 45 mcg (15 mcg x 3)/0.5 mL IM syringe Performing Provider: Angelica Sampson MD Performing Location: [facility] Documented (not given) by: AMI Yang on 05/28/24 15:28 Reason Not Given: Patient Refused Results Reviewed Results Reviewed: Laboratory Last Values Hgb A1c (Clinic) 8.9 % (4.0-6.0) H 05/28/24 15:29 Coding Level of Care Code Est Pt Level 4 (61771) Complex EM visit Add On G2211 Diagnoses Diabetes mellitus type 2, insulin dependent E11.9; Z79.4 Essential hypertension I10 Pure hypercholesterolemia E78.00 Diabetic autonomic neuropathy associated with type 2 diabetes mellitus E11.43 Diabetes mellitus type: type 2 Diabetes mellitus complication detail: diabetic autonomic neuropathy Psychophysiological insomnia F51.04 Insomnia type: psychophysiologic Additional Codes RAMEZ-7 Assessment Billing - RAMEZ-7 Assessment Tool: RAMEZ-7 Assessment 63954 ([id number]) PHQ-9 - 40122 - PHQ-9 Billing: Yes ([id number]) Time Spent (min) 23 Assessment & Plan Assessment & Plan (1) Diabetes mellitus type 2, insulin dependent: Code(s): E11.9 - Type 2 diabetes mellitus without complications; 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 Category: Medical (2) Essential hypertension: Code(s): I10 - Essential (primary) hypertension Category: Medical (3) Pure hypercholesterolemia: Code(s): E78.00 - Pure hypercholesterolemia, unspecified Category: Medical (4) Diabetic neuropathy: Code(s): E11.40 - Type 2 diabetes mellitus with diabetic neuropathy, unspecified Category: Medical Qualifiers: Diabetes mellitus type: type 2 Diabetes mellitus complication detail: diabetic autonomic neuropathy Qualified Code(s): E11.43 - Type 2 diabetes mellitus with diabetic autonomic (poly)neuropathy (5) Insomnia: Code(s): G47.00 - Insomnia, unspecified Category: Medical Qualifiers: Insomnia type: psychophysiologic Qualified Code(s): F51.04 - Psychophysiologic insomnia Plan - Increase Lantus insulin to 28 units to improve glycemic control. - Initiate lisinopril and add amlodipine 5 mg to the regimen to better manage hypertension. - Continue atorvastatin for hyperlipidemia management. - Continue aspirin for cardiovascular protection. - Monitor blood pressure and glucose levels closely. - Recommend follow-up labs to assess blood glucose and cholesterol levels. Patient was informed and verbally consented to the use of an ambient scribe for clinic note documentation during this visit. During the visit, I discussed the need to adjust her Lantus insulin dosage to improve her glycemic control. I explained the benefits of maintaining optimal blood glucose levels in preventing complications associated with diabetes. We reviewed her current hypertension management plan and the addition of amlodipine to better control her blood pressure. I highlighted the necessity of adherence to her medication regimen and the role of lifestyle modifications alongside pharmacotherapy. The importance of regular monitoring of blood pressure and blood glucose levels was reiterated, and the patient was advised to follow up with laboratory assessments. Each potential treatment adjustment was explained in terms of its benefits, risks, and potential side effects. Orders: Orders AMB Hemoglobin A1c Today E11.9 - Type 2 diabetes mellitus without complications, Z79.4 - [facility] (current) use of insulin Comprehensive [place]. Panel Fast Today E11.43 - Type 2 diabetes mellitus with diabetic autonomic (poly)neuropathy Influenza [id number] Immunization Today Z23 - Encounter for immunization Lipid Panel Today E78.5 - Hyperlipidemia, unspecified Microalbumin, Random (w Creat) Today R80.9 - Proteinuria, unspecified Medications: New amlodipine 5 mg PO DAILY 90 tabs 1RF 90 days [id number] 3.5-500-10,000 [id number] 1 appl topical BEDTIME 28 grams 0RF 2 weeks oxybutynin chloride ER 10 mg PO DAILY 90 tabs 1RF 90 days N39.41 - Urge incontinence Changed From insulin glargine 25 units (0.25 mL) subcut QPM 90 days 22.5 mL 1RF E11.9 - Type 2 diabetes mellitus without complications, Z79.4 - [employer] container 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 (current) use of insulin To insulin glargine 30 units (0.3 mL) subcut QPM 27 mL 1RF 90 days E11.9 - Type 2 diabetes mellitus without complications, Z79.4 - [employer] (current) use of insulin From metformin Take 2 tabs at am and 1 tab at pm 500 mg PO DIRECTED 90 days 270 tabs 3RF E11.9 - Type 2 diabetes mellitus without complications, Z79.4 - [facility] (current) use of insulin To metformin Take 2 tabs at am and 1 tab at pm 500 mg PO BID 180 tabs 3RF 90 days E11.9 - Type 2 diabetes mellitus without complications, Z79.4 - [employer] container terminal (current) use of insulin Refilled atorvastatin 20 mg PO BEDTIME 90 tabs 3RF 90 days E78.00 - Pure hypercholesterolemia, unspecified lisinopril 40 mg PO DAILY 90 tabs 1RF 90 days Patient Instructions: - Increase Lantus insulin dosage to 28 units daily. - Begin taking amlodipine 5 mg for better blood pressure control. - Continue all other medications as previously prescribed. - Monitor blood pressure and blood glucose at home regularly. - Follow up with laboratory tests as recommended in the upcoming weeks. - Return for a follow-up appointment to assess the effectiveness of treatment adjustments.
[2024-05-28 15:30] VITALS: BP 156/80; BMI 27.1
== END 2024-05-28 16:08 | disposition home or self-care (01) ==
PROVIDERS: PCP Internal Medicine; Visit Provider Internal Medicine
DX: E11.43 Type 2 diabetes mellitus with diabetic autonomic (poly)neuropathy (principal); Z79.4 Long term (current) use of insulin; I10 Essential (primary) hypertension; E78.00 Pure hypercholesterolemia, unspecified; F51.04 Psychophysiologic insomnia; Z23 Encounter for immunization

== ENCOUNTER → 2024-05-28 15:20 | Outpatient (BNVA) | payer MEDICARE, MEDICAID, SELFPAY | PROVIDERS: PCP Internal Medicine; Visit Provider Internal Medicine | DX: E11.43 Type 2 diabetes mellitus with diabetic autonomic (poly)neuropathy (principal); R80.9 Proteinuria, unspecified; I10 Essential (primary) hypertension; E78.00 Pure hypercholesterolemia, unspecified; F51.04 Psychophysiologic insomnia; Z28.21 Immunization not carried out because of patient refusal; Z79.4 Long term (current) use of insulin | CPT/HCPCS: 83036; 90471; 96127; 99212 ==

== ENCOUNTER 2024-09-12 12:44 | Outpatient (AMB) | payer MEDICARE, MEDICAID, SELFPAY ==
[2024-09-12 12:56] VITALS: BP 138/76; BMI 26.9
--- NOTE | 2024-09-12 12:56 | MHC.PC.OV ---
Vital Signs 09/12/24 12:56 Height 5 ft Weight 138 lb BMI 26.9 BP 138/76 Blood Pressure Location Lt brachial Position Sitting Intake Visit Reasons: annual exam Intake Note: Patient here for a physical exam Cage Clerk Required: No Accompanied by: Self / Same As Patient Allergies seafood Allergy (Severe, Verified 09/12/24 13:11) Swelling Medication List - Last Reconciled 09/12/24 by Angelica Sampson MD amlodipine 5 mg PO DAILY 90 days aspirin (Adult Low Dose Aspirin) 81 mg PO DAILY 90 days atorvastatin 20 mg PO BEDTIME 90 days blood sugar diagnostic (FreeStyle Test strips) 1 test strip twice a day gabapentin 100 mg PO BEDTIME 90 days insulin glargine 30 units (0.3 mL) subcut QPM 90 days insulin syringe-needle U-100 As directed lancets (FreeStyle Lancets) Use 1 lancet twice a day lisinopril 40 mg PO DAILY 90 days metformin 500 mg PO BID 90 days tnbagmoh-fztysdgwlXt-cmyxhiqtS 3.5-500-10,000 wv-zvls-llxo 1 appl topical BEDTIME 2 weeks nystatin 1 appl topical DAILY PRN 2 weeks oxybutynin chloride ER 10 mg PO DAILY 90 days sennosides (senna) 8.6 mg PO BEDTIME PRN 90 days trazodone 50 mg PO BEDTIME PRN 90 days Tobacco use date assessed: 09/12/24 Fall risk assessment: No Falls in past year Last assessed Fall Risk: 09/12/24 Dental Screening Dental Screen Date: 09/12/24 Did you have a dental visit in the last 12 months?: No Did you have a dental problem in the last 6 months where you did not have access to dental care?: No Was dental information given to patient?: Patient has dentist HPI HPI Comments History of Present Illness Details The patient is a 73-year-old female presenting for an annual physical examination and vaccination update. She confirms receiving the pneumonia vaccine before age 67 and today agrees to another dose. Her Hemoglobin A1c has shown improvement but remains suboptimal at 8.3. While she experienced COVID-19 in June, she currently has only a mild cough without fever or severe symptoms. Recent eye treatments aimed at improving her vision have been successful, with positive outcomes. Previously, she underwent a hysterectomy due to fibroid complications. Her medication routine includes amlodipine, aspirin, atorvastatin, and metformin with insulin used for diabetes management. A reaction to oxybutynin led to hypotension and was subsequently discontinued. Family history includes maternal diabetes and kidney problems, with a brother affected by colon cancer. She reports no smoking or alcohol use. - Pneumococcal vaccination update scheduled for today. - Regular monitoring and management of diabetes status. - Eye examinations and interventions ongoing every 4 weeks. - Mammography and bone density testing scheduling required. - Lifestyle discussions on non-smoking and non-alcohol use. [facility] Medical History Hip fracture requiring operative repair Diabetic neuropathy Insomnia Constipation by delayed colonic transit Microalbuminuria Pure hypercholesterolemia Essential hypertension Diabetes mellitus type 2, insulin dependent Surgical History S/P DAVID-BSO (total abdominal hysterectomy and bilateral salpingo-oophorectomy) History of tubal ligation Family History Father Medical history unknown Mother Diabetes Hypertension ESRD on hemodialysis Brother Cancer, Onset Age: 60 Son No problems noted. Son No problems noted. Social History Housing: Apartment Alcohol intake: never Patient Tobacco Use Status: Never used Tobacco e-Cigarette/Vaping Use: Never Used Second Hand Smoke Exposure: No service: No Current occupational status: disabled Cognitive needs: No Hearing needs: No Vision needs: Yes (glasses) Questionnaire PHQ-9 Over the last 2 weeks, how often have you been bothered by any of the following problems? 1. Little interest or pleasure in doing things: not at all 2. Feeling down, depressed, or hopeless: not at all 3. Trouble falling or staying asleep, or sleeping too much: not at all 4. Feeling tired or having little energy: not at all 5. Poor appetite or overeating: not at all 6. Feeling bad about yourself - or that you are a failure or have let yourself or your family down: not at all 7. Trouble concentrating on things, such as reading the newspaper or watching television: not at all 8. Moving or speaking so slowly that other people could have noticed. Or the opposite - being so fidgety or restless that you have been moving around a lot more than usual: not at all 9. Thoughts that you would be better off or of hurting yourself in some way: not at all Total score: 0 Depression Screening Interpretation: Negative Depression Screening Done: Yes 40339 - PHQ-9 Billing: Yes Source: Developed by Drs. Aurelio Sanchez, Kendra Mata, Riley Colón and colleagues, with an educational sandy from [employer]. Thrive Questionnaire Date Thrive assessed: 05/28/24 I am a: Patient What is your living situation today?: I have a steady place to live Within the past 12 months, did the food you bought not last and you didn't have the money to get more?: Never true Within the past 12 months, did you worry whether your food would run out before you got money to buy more?: Never true Do you have trouble paying for medicines?: No Do you have trouble getting transportation to medical appointments?: No Do you have trouble paying your heating and electricity bill?: No Do you have trouble taking care of your child, family member or friend?: No Do you have trouble with day-to-day activities such as bathing, preparing meals, shopping, managing finances, etc.?: No Are you currently unemployed and looking for a job?: Yes Are you interested in more education?: No Please select the resources that you would like help with: None Currently or been in a relationship where the following occur: No concerns reported THRIVE Score: 0 AUDIT C Alcohol Use Questionnaire (AUDIT-C) 1. How often do you have a drink containing alcohol?: Never Total Score: 0 Score Reviewed/Action Taken: No RAMEZ-7 AMB Questionnaire RAMEZ-7 Date RAMEZ - 7 assessed: 05/28/24 Feeling nervous, anxious, or on edge: 0 = Not at all Not being able to stop or control worryin = Not at all Worrying too much about different things: 0 = Not at all Trouble relaxin = Not at all Being so restless that it is hard to sit still: 0 = Not at all Becoming easily annoyed or irritable: 0 = Not at all Feeling afraid as if something awful might happen: 0 = Not at all Total RAMEZ-7 score (0-4 normal; 5-9 mild; 10-14 moderate; 15-21 severe): 0 Source: Developed by Drs. Aurelio Sanchez, Kendra Mata, Riley Colón and colleagues, with an educational sandy from [employer]. RAMEZ-7 Assessment Billing RAMEZ-7 Assessment Tool: RAMEZ-7 Assessment 30177 Review of Systems Const All systems reviewed & are unremarkable except as noted in HPI and below Card Denies chest pain at rest, Denies chest pain with activity, Denies edema, Denies irregular heart rhythm, Denies claudication, Denies dyspnea, Denies dyspnea on exertion, Denies orthopnea, Denies paroxysmal nocturnal dyspnea and Denies slow heart rate Resp Denies cough, Denies dyspnea and Denies dyspnea on exertion Physical exam (Primary Care) Vital Signs: Last Vital Signs BP 138/76 09/12/24 12:56 BMI result Body Mass Index 26.9 Tobacco/Smoking Status: Tobacco use Status Tobacco use date assessed 09/12/24 09/12/24 12:59 Patient Tobacco Use Status Never used Tobacco 09/12/24 12:59 e-Cigarette/Vaping Use Never Used 09/12/24 12:59 PHQ-9: PHQ-9 Score PHQ-9: Total score 0 09/12/24 14:01 Depression Screening Interpretation: Negative Thrive Assessment: Date of Thrive Assessment Date Thrive assessed 05/28/24 09/12/24 12:59 Currently or been in a relationship where the following occur: No concerns reported [facility] Head: Yes normal to inspection, Yes normocephalic and Yes atraumatic Ears: external ears normal Eyes General: appearance normal, both eyes and all related structures Eyelids: Yes eyelids normal Conjunctivae: conjunctivae normal Neck Neck: Yes normal visual inspection and Yes supple Resp Effort & Inspection: normal respiratory effort Auscultation: clear to auscultation bilaterally Cardio Jugular venous distension: no JVD Rate: regular rate Rhythm: regular rhythm Heart sounds: S1 normal heart sound present and S2 normal heart sound present GI Inspection: Yes normal to inspection Palpation (GI): Soft to palpation and nontender Auscultation: normal bowel sounds Skin General skin exam: no rashes or lesions noted Neuro General: no focal motor deficits Extrem General: Yes full ROM Psych Appearance: grossly normal Results AMB Hemoglobin A1c AMB Hemoglobin A1c 8.3 % Last Edit by AMI Yang on 09/12/24 13:04 Immunizations pneumoc 20-kolby conj-dip cr(PF) 0.5 mL IM syringe Performing Provider: Angelica Sampson MD Performing Location[facility] [place] [facility] Administered by: Sunni Dias LPN on 09/12/24 13:30 Dose Route Admin Location Dispensed Lot Number Expiration Date [employer] Insurance Coordinator 0.5 mL IM Right Deltoid 0.5 mL [id number] 07/12/25 Prepared Response/[employer] VIS Given Date VIS Provided VIS Publication Date 09/12/24 Single Vaccine 21 Eligibility Eligibility Date Funding Source Not [facility] Eligible 09/12/24 Private Results Reviewed Results Reviewed: Laboratory Last Values Hgb A1c (Clinic) 8.3 % (4.0-6.0) H 09/12/24 13:00 Coding Level of Care Code Est Pt Prev Care >65y(29463) Diagnoses Physical exam Z00.00 Diabetes mellitus type 2, insulin dependent E11.9; Z79.4 Additional Codes RAMEZ-7 Assessment Billing - RAMEZ-7 Assessment Tool: RAMEZ-7 Assessment 35300 ([id number]) PHQ-9 - 50978 - PHQ-9 Billing: Yes ([id number]) Time Spent (min) 23 Assessment & Plan Assessment & Plan (1) Physical exam: Code(s): Z00.00 - Encounter for general adult medical examination without abnormal findings Category: Medical (2) Diabetes mellitus type 2, insulin dependent: Code(s): E11.9 - Type 2 diabetes mellitus without complications; Z79.4 - 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 The patient's respiratory health post-COVID shows resolution, though mild cough persists. Eye interventions have shown progress, supporting continuation. A one-time adverse reaction to oxybutynin suggests hypersensitivity, necessitating its discontinuation. Awareness and family history guide focus, notably with colon cancer, advising ongoing vigilance. Screening plans for mammography and bone density checks will be clarified. Reinforcement of her smoke and alcohol-free practices is beneficial for overall health support.: Patient was informed and verbally consented to the use of an ambient scribe for clinic note documentation during this visit. I discussed with the patient that the pneumococcal vaccine is due, and it will be administered today to maintain immunity. A review of her Hemoglobin A1c showed reduction, yet remains above target, requiring continuous management efforts. I explained that her current regimen, involving insulin treatment and oral hypoglycemics, remains crucial for optimal diabetes control. Current ocular health interventions appear effective, and I encourage regular follow-up to ensure continued vision improvement. The discontinuation of oxybutynin necessitates caution due to previous hypotensive episode. We discussed future screening tests, including mammography, due to familial risks. Reiterated adherence to recommended medications is essential, alongside the importance of her non-smoking and non-alcohol consumption lifestyle. Orders: Orders AMB Hemoglobin A1c Today E11.9 - Type 2 diabetes mellitus without complications, Z79.4 - advertising campaign manager (current) use of insulin XR DEXA axial skeleton Today Z78.0 - Asymptomatic menopausal state Lipid Panel Today E78.5 - Hyperlipidemia, unspecified Microalbumin, Random (w Creat) Today R80.9 - Proteinuria, unspecified Comprehensive [place]. Panel Fast Today E11.43 - Type 2 diabetes mellitus with diabetic autonomic (poly)neuropathy MM tomosynthesis screening BI Today Z12.31 - Encounter for screening mammogram for malignant neoplasm of breast Vitamin B12 and Folate Today E53.8 - Deficiency of other specified B group vitamins Vitamin D 25-OH Total Today E55.9 - Vitamin D deficiency, unspecified Pneumococcal 20 Immunization Today Z23 - Encounter for immunization Medications: Changed From insulin glargine 30 units (0.3 mL) subcut QPM 90 days 27 mL 1RF E11.9 - Type 2 diabetes mellitus without complications, Z79.4 - FPC (current) use of insulin To insulin glargine 32 units (0.32 mL) subcut QPM 28.8 mL 1RF 90 days E11.9 - Type 2 diabetes mellitus without complications, Z79.4 - advertising campaign manager (current) use of insulin Discontinued oxybutynin chloride ER Discontinued Reason: Patient Completed Course 10 mg PO DAILY 90 days 90 tabs 1RF N39.41 - Urge incontinence Patient Instructions: - Receive pneumonia vaccine as planned today. - Continue current diabetes medication regimen. - Monitor blood sugar levels regularly. - Follow up with eye care every 4 weeks. - Report any further symptoms of low blood pressure immediately. - Schedule mammogram and bone density tests. - Maintain a healthy lifestyle with a balanced diet and regular activity. - Seek care promptly if any new symptoms arise, particularly related to chronic conditions.
== END 2024-09-12 13:34 | disposition home or self-care (01) ==
LOC: HO.HMCH 12:45
PROVIDERS: PCP Internal Medicine; Visit Provider Internal Medicine
DX: Z00.00 Encounter for general adult medical examination without abnormal findings (principal); E11.9 Type 2 diabetes mellitus without complications; Z79.4 Long term (current) use of insulin; Z23 Encounter for immunization

== ENCOUNTER → 2024-09-12 12:44 | Outpatient (BNVA) | payer MEDICARE, MEDICAID, SELFPAY | PROVIDERS: PCP Internal Medicine; Visit Provider Internal Medicine | DX: Z00.00 Encounter for general adult medical examination without abnormal findings (principal); Z23 Encounter for immunization; E11.9 Type 2 diabetes mellitus without complications; Z79.4 Long term (current) use of insulin | CPT/HCPCS: 83036; 90471; 90677; 96127; 99397 ==

== ENCOUNTER 2025-01-21 13:47 | Outpatient (AMB) | payer MEDICARE, MEDICAID, SELFPAY ==
--- NOTE | 2025-01-21 13:51 | MHC.PC.OV ---
Vital Signs 01/21/25 13:53 Height 5 ft Weight 137 lb BMI 26.8 BP 152/80 H Blood Pressure Location Lt brachial Position Sitting Pulse 96 Pulse Source Pulse Oximeter Pulse Oximetry (%) 112 H Oxygen Delivery Method Room Air Intake Visit Reasons: dm Guest Relations Coordinator Required: No Accompanied by: Self / Same As Patient Allergies seafood Allergy (Severe, Verified 01/21/25 14:12) Swelling Medication List - Last Reconciled 01/21/25 by Angelica Sampson MD amlodipine 5 mg PO DAILY 90 days aspirin (Adult Low Dose Aspirin) 81 mg PO DAILY 90 days atorvastatin 20 mg PO BEDTIME 90 days blood sugar diagnostic (FreeStyle Test strips) 1 test strip twice a day gabapentin 100 mg PO BEDTIME 90 days insulin glargine 32 units (0.32 mL) subcut QPM 90 days insulin syringe-needle U-100 As directed lancets (FreeStyle Lancets) Use 1 lancet twice a day lisinopril 40 mg PO DAILY 90 days metformin 500 mg PO BID 90 days ejyvfqar-ijqikefgoOj-sudvvzmoS 3.5-500-10,000 zf-hhrm-ejdl 1 appl topical BEDTIME 2 weeks nystatin 1 appl topical DAILY PRN 2 weeks sennosides (senna) 8.6 mg PO BEDTIME PRN 90 days trazodone 50 mg PO BEDTIME PRN 90 days Tobacco use date assessed: 01/21/25 Fall risk assessment: No Falls in past year Last assessed Fall Risk: 01/21/25 Dental Screening Dental Screen Date: 01/21/25 Did you have a dental visit in the last 12 months?: No Did you have a dental problem in the last 6 months where you did not have access to dental care?: No Was dental information given to patient?: No HPI HPI Comments History of Present Illness Details The patient is a 74-year-old female presenting with a follow-up for diabetes management. She is currently taking metformin 500 mg twice daily for diabetes control. Her recent A1c level was noted to be 9.5%, indicating poor glycemic control. Also has hyperlipidemia and her LDL goal is less than 70. Labs were ordered. The patient also has a history of hypertension, with recent blood pressure readings being elevated at 150 mmHg systolic. She was previously on lisinopril and is now being prescribed amlodipine to better manage her blood pressure. Additionally, the patient reports allergies to seafood and certain medications, which have been noted in her medical history. The patient experiences constipation, for which she is taking senna. [facility] Medical History Hip fracture requiring operative repair Diabetic neuropathy Insomnia Constipation by delayed colonic transit Microalbuminuria Pure hypercholesterolemia Essential hypertension Diabetes mellitus type 2, insulin dependent Surgical History S/P DAVID-BSO (total abdominal hysterectomy and bilateral salpingo-oophorectomy) History of tubal ligation Family History Father Medical history unknown Mother Diabetes Hypertension ESRD on hemodialysis Brother Cancer, Onset Age: 60 Son No problems noted. Son No problems noted. Social History Housing: Apartment Alcohol intake: never Patient Tobacco Use Status: Never used Tobacco e-Cigarette/Vaping Use: Never Used Second Hand Smoke Exposure: No service: No Current occupational status: disabled Cognitive needs: No Hearing needs: No Vision needs: Yes (glasses) Questionnaire PHQ-9 Over the last 2 weeks, how often have you been bothered by any of the following problems? 1. Little interest or pleasure in doing things: not at all 2. Feeling down, depressed, or hopeless: not at all 3. Trouble falling or staying asleep, or sleeping too much: not at all 4. Feeling tired or having little energy: not at all 5. Poor appetite or overeating: not at all 6. Feeling bad about yourself - or that you are a failure or have let yourself or your family down: not at all 7. Trouble concentrating on things, such as reading the newspaper or watching television: not at all 8. Moving or speaking so slowly that other people could have noticed. Or the opposite - being so fidgety or restless that you have been moving around a lot more than usual: not at all 9. Thoughts that you would be better off or of hurting yourself in some way: not at all Total score: 0 Depression Screening Interpretation: Negative Depression Screening Done: Yes 13319 - PHQ-9 Billing: Yes Source: Developed by Drs. Aurelio Sanchez, Kendra Mata, Riley Colón and colleagues, with an educational sandy from [employer]. Thrive Questionnaire Date Thrive assessed: 01/21/25 I am a: Patient What is your living situation today?: I have a steady place to live Within the past 12 months, did the food you bought not last and you didn't have the money to get more?: Never true Within the past 12 months, did you worry whether your food would run out before you got money to buy more?: Never true Do you have trouble paying for medicines?: No Do you have trouble getting transportation to medical appointments?: No Do you have trouble paying your heating and electricity bill?: No Do you have trouble taking care of your child, family member or friend?: No Do you have trouble with day-to-day activities such as bathing, preparing meals, shopping, managing finances, etc.?: No Are you currently unemployed and looking for a job?: Yes Are you interested in more education?: No Please select the resources that you would like help with: None Currently or been in a relationship where the following occur: No concerns reported THRIVE Score: 0 AUDIT C Alcohol Use Questionnaire (AUDIT-C) 1. How often do you have a drink containing alcohol?: Never Total Score: 0 Score Reviewed/Action Taken: No RAMEZ-7 AMB Questionnaire RAMEZ-7 Date RAMEZ - 7 assessed: 01/21/25 Feeling nervous, anxious, or on edge: 0 = Not at all Not being able to stop or control worryin = Not at all Worrying too much about different things: 0 = Not at all Trouble relaxin = Not at all Being so restless that it is hard to sit still: 0 = Not at all Becoming easily annoyed or irritable: 0 = Not at all Feeling afraid as if something awful might happen: 0 = Not at all Total RAMEZ-7 score (0-4 normal; 5-9 mild; 10-14 moderate; 15-21 severe): 0 Source: Developed by Drs. Aurelio Sanchez, Riley Nichols and colleagues, with an educational sandy from [employer]. RAMEZ-7 Assessment Billing RAMEZ-7 Assessment Tool: RAMEZ-7 Assessment 14397 Review of Systems Const All systems reviewed & are unremarkable except as noted in HPI and below Card Denies chest pain at rest, Denies chest pain with activity, Denies edema, Denies irregular heart rhythm, Denies claudication, Denies dyspnea, Denies dyspnea on exertion, Denies orthopnea, Denies paroxysmal nocturnal dyspnea and Denies slow heart rate Resp Denies cough, Denies dyspnea and Denies dyspnea on exertion Physical exam (Primary Care) Vital Signs: Last Vital Signs Pulse 96 01/21/25 13:53 BP 152/80 H 01/21/25 13:53 Pulse Ox 112 H 01/21/25 13:53 Oxygen Delivery Method Room Air 01/21/25 13:53 BMI result Body Mass Index 26.8 Tobacco/Smoking Status: Tobacco use Status Tobacco use date assessed 01/21/25 01/21/25 13:59 Patient Tobacco Use Status Never used Tobacco 01/21/25 13:59 e-Cigarette/Vaping Use Never Used 01/21/25 13:59 PHQ-9: PHQ-9 Score PHQ-9: Total score 0 01/21/25 14:26 Depression Screening Interpretation: Negative Thrive Assessment: Date of Thrive Assessment Date Thrive assessed 01/21/25 01/21/25 13:59 Currently or been in a relationship where the following occur: No concerns reported Resp Effort & Inspection: normal respiratory effort Auscultation: clear to auscultation bilaterally Cardio Jugular venous distension: no JVD Rate: regular rate Rhythm: regular rhythm Heart sounds: S1 normal heart sound present and S2 normal heart sound present Extrem General: Yes full ROM Results AMB Hemoglobin A1c AMB Hemoglobin A1c 9.5 % Last Edit by AMI Hannah on 01/21/25 14:26 Results Reviewed Results Reviewed: Laboratory Last Values Hgb A1c (Clinic) 9.5 % (4.0-6.0) H 01/21/25 14:21 Coding Level of Care Code Est Pt Level 4 (70205) Complex EM visit Add On G2211 Diagnoses Diabetes mellitus type 2, insulin dependent E11.9; Z79.4 Essential hypertension I10 Pure hypercholesterolemia E78.00 Constipation by delayed colonic transit K59.01 Additional Codes RAMEZ-7 Assessment Billing - RAMEZ-7 Assessment Tool: RAMEZ-7 Assessment 03463 ([id number]) PHQ-9 - 62560 - PHQ-9 Billing: Yes ([id number]) Time Spent (min) 21 Assessment & Plan Assessment & Plan (1) Diabetes mellitus type 2, insulin dependent: Code(s): E11.9 - Type 2 diabetes mellitus without complications; Z79.4 - emt intermediate (current) use of insulin Category: Medical (2) Essential hypertension: Code(s): I10 - Essential (primary) hypertension Category: Medical (3) Pure hypercholesterolemia: Code(s): E78.00 - Pure hypercholesterolemia, unspecified Category: Medical (4) Constipation by delayed colonic transit: Code(s): K59.01 - Slow transit constipation Category: Medical Plan Plan Patient was informed and verbally consented to the use of an ambient scribe for clinic note documentation during this visit. 1. Type 2 diabetes mellitus without complications E11.9 HCC 19 The patient's diabetes management plan includes continuing metformin 500 mg twice daily. Her A1c level is 9.5%, and the Lantus dosage is being increased to 38 units to improve glycemic control. 2. Essential (primary) hypertension I10 The patient is being transitioned from lisinopril to amlodipine for better blood pressure management. Blood pressure monitoring is advised, and follow-up is scheduled in three weeks to assess the effectiveness of the new regimen. 3. Constipation, unspecified K59.00 The patient is currently taking senna to manage constipation symptoms. 4. Hyperlipidemia, unspecified E78.5 Orders: Orders Lipid Panel 4 Months E78.5 - Hyperlipidemia, unspecified Vitamin D 25-OH Total 4 Months E55.9 - Vitamin D deficiency, unspecified [place]. Panel Fast 4 Months E11.9 - Type 2 diabetes mellitus without complications, Z79.4 - long-term (current) use of insulin AMB Hemoglobin A1c Today Z13.9 - Encounter for screening, unspecified Microalbumin, Random (w Creat) 4 Months R80.9 - Proteinuria, unspecified Vitamin B12 and Folate 4 Months E53.8 - Deficiency of other specified B group vitamins Medications: New trazodone 100 mg PO BEDTIME PRN 90 tabs 1RF sleep 90 days metformin 1,000 mg PO BID 180 tabs 1RF 90 days Changed From insulin glargine 32 units (0.32 mL) subcut QPM 90 days 28.8 mL 1RF E11.9 - Type 2 diabetes mellitus without complications, Z79.4 - emt intermediate (current) use of insulin To insulin glargine 38 units (0.38 mL) subcut QPM 34.2 mL 1RF 90 days E11.9 - Type 2 diabetes mellitus without complications, Z79.4 - emt intermediate (current) use of insulin Refilled amlodipine 5 mg PO DAILY 90 tabs 1RF 90 days Discontinued metformin Take 2 tabs at am and 1 tab at pm Discontinued Reason: Order 500 mg PO BID 90 days 180 tabs 3RF E11.9 - Type 2 diabetes mellitus without complications, Z79.4 - emt intermediate (current) use of insulin trazodone Discontinued Reason: Patient Completed Course 50 mg PO BEDTIME 90 days PRN 90 tabs 0RF sleep G47.00 - Insomnia, unspecified
[2025-01-21 13:53] VITALS: BP 152/80; PULSE 96; O2SAT 112; BMI 26.8
--- OUTSIDE RECORDS SUMMARY | 2025-01-21 16:30 | XMS_ITS ---
Author Name [facility] Organization Unknown Encounters Encounter Type Encounter Reason Primary Diagnosis Location Date Inpatient Stress fracture, unspecified femur, initial encounter for fracture exoro system 08/28/2022 Care Team Organization Name Specialty Phone Email Start Date End Da te [place] [employer] KAI FIGUEROA Primary Care 11/02/20222022 ex[facility] system 08/28/2022 08/28/2022 ex[facility] system 08/28/2022
--- OUTSIDE RECORDS SUMMARY | 2025-01-21 16:30 | XMS_ITS | Clinical Summary ---
Author Organization [facility] Address [address] [place] [address] Phone Care Team Providers Care [employer] Doc[employer] Name Role Phone Angelica Beaver MD Primary Care Provider [phone] Medications aspirin (ST MARISA) 81 MG EC tablet Take 1 tablet by mouth 1 (one) time each day Active atorvastatin (LIPITOR) 20 MG tablet Take 1 tablet by mouth 1 (one) time each day Active Trulicity 0.75 MG/0.5ML solution pen-injector ADMINISTER 0.75 MG UNDER THE SKIN EVERY WEEK 1 Active insulin glargine (Lantus SoloStar) 100 UNIT/ML injection Inject 30 Units under the skin 1 (one) time each day Active lisinopril (PRINIVIL,ZESTR IL) 5 MG tablet Take 1 tablet by mouth 1 (one) time each day Active metFORMIN (GLUCOPHAGE) 500 MG tablet Take 500 mg by mouth 2 (two) times a day 1 Active senna (SENOKOT) 8.6 MG tablet TAKE 1 TABLET BY MOUTH AT BEDTIME NEEDED FOR CONSTIPATION 1 Active traZODone (DESYREL) 50 MG tablet Take 50 mg by mouth at night if needed 1 Active Active Problems Problem Noted Date Diagnosed Date Microalbuminuria 10/22/2020 Essential hypertension 10/22/2020 Type 2 diabetes mellitus 10/22/2020 Family History Medical History Relation Comments Cancer Brother Diabetes Mother Hypertension Mother Relation Status Comments Brother Father Mother Alive Social History Tobacco Use Types Packs/Day Years Used Date Smoking Tobacco: Never Assessed Comments Unknown Sex and Gender Information Value Date Recorded Sex Assigned at Not on file Legal Sex Female 4:54 PM EST Gender Identity Not on file Sexual Orientation Not on file Plan of Treatment Health Maintenance Due Date Last Done Comments Breast Cancer Screening 1950 Colorectal Cancer Screening: Annual FOBT 2001 Colorectal Cancer Screening: Colonoscopy 2001 Colorectal Cancer Screening: Sigmoidoscopy 2001 Pneumococcal Vaccine: 50+ Years (1 of 1 - PCV) 2002 Diabetes: Ophthalmology Exam 06/15/2020 Diabetes: Pedal Pulse Checked 06/15/2020 Diabetes: Sensory Foot Exam 06/15/2020 Diabetes: Visual Foot Exam 06/15/2020 Diabetes: Hemoglobin A1C 04/05/2022 022, 04/22/2021 Influenza Vaccine (#1) 2025 Hepatitis B Vaccine Aged Out No longe r eligible based on patient's age to complete this topic Procedures Procedure Name Priority Date/Time Associated Diagnosis Comments EXT RESULT ENTRY Routine 01/03/2022 from Last 3 Months or Most Recently Relevant to Health Maintenance Results * (ABNORMAL) EXT RESULT ENTRY (01/03/2022) Hemoglobin A1C 6.8(A) 4.0 - 6.0 01/03/2022 Historical Provider LAB BLOOD ORDERABLES Darcy l Result from Last 3 Months or Most Recently Relevant to Health Maintenance Insurance Medicare Medicaid [place] Medicare [place] Care Teams [employer] [facility] Relationship Specialty Start Date End Date Angelica Beaver MD [address] [place] [address] PCP - General 05/25/20
== END 2025-01-21 14:27 | disposition home or self-care (01) ==
LOC: HO.HMCH 13:48
PROVIDERS: PCP Internal Medicine; Visit Provider Internal Medicine
DX: E11.9 Type 2 diabetes mellitus without complications (principal); Z79.4 Long term (current) use of insulin; I10 Essential (primary) hypertension; E78.00 Pure hypercholesterolemia, unspecified; K59.01 Slow transit constipation; Z13.9 Encounter for screening, unspecified

== ENCOUNTER → 2025-01-21 13:47 | Outpatient (BNVA) | payer MEDICARE, MEDICAID, SELFPAY | PROVIDERS: PCP Internal Medicine; Visit Provider Internal Medicine | DX: E11.9 Type 2 diabetes mellitus without complications (principal); E78.00 Pure hypercholesterolemia, unspecified; I10 Essential (primary) hypertension; K59.01 Slow transit constipation; Z79.4 Long term (current) use of insulin | CPT/HCPCS: 83036; 96127; 99212 ==